=== PATIENT | male | born 1960 | race Caucasian/White ===

== ENCOUNTER 2019-12-13 02:14 | Emergency (ER) | payer OTHER ==
[2019-12-13 03:27] LABS: Absolute Lymphocytes (CBC) 0.8 K/uL (0.7-4.9); Basophils % 0.4 % (0-1.3); Hematocrit 44.7 % (39.6-49.0); Lymphocytes % 10.8 % (15.3-44.8); MPV 8.1 fL (7.6-11.3); RBC Red Blood Cell Count 5.07 M/uL (4.33-5.43)
[2019-12-13 03:33] LABS: ALT/SGPT 31 U/L (12-78); AST/SGOT 26 U/L (15-37); Albumin 4.5 g/dL (3.4-5.0); Alkaline Phosphatase 99 U/L (45-117); BUN Blood Urea Nitrogen 18 mg/dL (7-18); Bicarbonate 30 mmol/L (21-32); Bilirubin Direct 0.2 mg/dL (0-0.2); Bilirubin Total 0.6 mg/dL (0.2-1.0); Glucose Level 106 mg/dL (74-106); Potassium 4.2 mmol/L (3.5-5.1); Protein, Total 8.6 g/dL (6.4-8.2); Sodium Level 136 mmol/L (136-145)
[2019-12-13] MEDS ORDERED: MAGNESIUM CITRATE 300 ML BOT ONE (05:05)
--- NOTE | 2019-12-13 05:27 | ER ---
Nurse's Notes [facility] Name: Bill Sanchez Age: 59 yrs Sex: Male : 1960 Arrival Date: 12/13/2019 Time: 02:20 Bed 17 Private MD: Diagnosis: Constipation, unspecified Presentation: 12/12 02:33 Chief complaint: Patient states: Last bowel movement ws 2 days ago, having difficulty wh defecating tonight. Pt states he feels like its coming out but it wont pass. C/O rectal pain. Coronavirus screen: Client denies travel out of the [place] in the last 14 days. At this time, the client does not indicate any symptoms associated with coronavirus-19. Ebola Screen: Patient negative for fever greater than or equal to 101.5 degrees Fahrenheit, and additional compatible Ebola Virus Disease symptoms Patient denies exposure to infectious person. Initial Sepsis Screen: Does the patient meet any 2 criteria? HR > 90 bpm. Does the patient have a suspected source of infection? No. Patient's initial sepsis screen is negative. Risk Assessment: Do you want to hurt yourself or someone else? Patient reports no desire to harm self or others. Onset of symptoms was December 13, 2019. 02:33 Method Of Arrival: Ambulatory 02:33 Acuity: SID 4 Historical: - Allergies: 02:37 multivitamins; - Home Meds: 02:37 lisinopril-hydrochlorothiazide oral oral [Active]; - PMHx: 02:37 Diabetes - NIDDM; Hypertension; High Cholesterol; Sleep Apnea; - PSHx: 02:37 Hernia repair; - Immunization history:: Adult Immunizations up to date. - Social history:: Smoking status: Patient/guardian denies using. Screenin:39 Abuse screen: Denies threats or abuse. Denies injuries from another. Nutritional screening: No deficits noted. Tuberculosis screening: No symptoms or risk factors identified. Fall Risk None identified. Assessment: 02:37 General: Appears in no apparent distress. Behavior is calm, cooperative, appropriate for age. Pain: Complains of pain in Rectal pain Pain currently is 4 out of 10 on a pain scale. Quality of pain is described as pressure. Neuro: Level of Consciousness is awake, alert, obeys commands, Oriented to person, place, time, situation, Appropriate for age. Cardiovascular: Heart tones S1 S2. Respiratory: Airway is patent Respiratory effort is even, unlabored, Respiratory pattern is regular, symmetrical, Breath sounds are clear bilaterally. GI: Abdomen is flat, non-distended, Bowel sounds present X 4 quads. Abd is soft and non tender X 4 quads. : No signs and/or symptoms were reported regarding the genitourinary system. EENT: No signs and/or symptoms were reported regarding the EENT system. Derm: Skin is intact, is healthy with good turgor, Skin is pink, warm \T\ dry. normal. Musculoskeletal: Circulation, motion, and sensation intact. 04:00 Reassessment: Patient appears in no apparent distress at this time. No changes from previously documented assessment. Patient and/or family updated on plan of care and expected duration. Pain level reassessed. Patient is alert, oriented x 3, equal unlabored respirations, skin warm/dry/pink. 05:36 Reassessment: Patient appears in no apparent distress at this time. Patient and/or family updated on plan of care and expected duration. Pain level reassessed. Patient is alert, oriented x 3, equal unlabored respirations, skin warm/dry/pink. Patient states feeling better. Patient states symptoms have improved. Vital Signs: 02:33 BP 112 / 81; Pulse 96; Resp 18; Temp 98.3; Pulse Ox 100% ; Weight 101.51 kg; Height 5 wh ft. 10 in. (177.80 cm); Pain 4/10; 03:45 BP 122 / 86; Pulse 92; Resp 18; Pulse Ox 99% on R/A; 05:00 BP 117 / 86; Pulse 95; Resp 18; Pulse Ox 99% on R/A; 02:33 Body Mass Index 32.11 (101.51 kg, 177.80 cm) ED Course: 02:20 Patient arrived in ED. es 02:25 Thom Felton MD is Attending Physician. 7 02:33 Anjelica Banks is Primary Nurse. 02:36 Triage completed. 02:39 Arm band placed on right wrist. 02:39 Patient has correct armband on for positive identification. Bed in low position. Call light in reach. Side rails up X 1. Pulse ox on. NIBP on. 02:45 Inserted saline lock: 20 gauge in right antecubital area, using aseptic technique. Blood collected. 04:33 Abdomen Acute Series XRAY In Process Unspecified. EDDE 05:25 Mack Polk MD is Referral Physician. [facility] 05:38 No provider procedures requiring assistance completed. IV discontinued, intact, wh bleeding controlled, No redness/swelling at site. Administered Medications: 04:55 Drug: Magnesium Citrate Liquid 300 ml Route: PO; 05:39 Follow up: Response: No adverse reaction Outcome: 05:26 Discharge ordered by . [facility] 05:38 Discharged to home ambulatory. 05:38 Condition: stable 05:38 Discharge instructions given to patient, Instructed on discharge instructions, follow up and referral plans. medication usage, POC Demonstrated understanding of instructions, follow-up care, medications, POC Prescriptions given X 3. 05:39 Patient left the ED. Signatures: Dispatcher [employer] EDAlexandrea Cullen Winsy Thom Felton MD MD [facility]
--- NOTE | 2019-12-13 05:27 | EDPHYS ---
Physician Documentation [facility] Name: Bill Sanchez Age: 59 yrs Sex: Male : 1960 Arrival Date: 12/13/2019 Time: 02:20 Bed 17 Private MD: ED Physician Thom Felton HPI: 12/12 02:54 This 59 yrs old Male presents to ER via Ambulatory with complaints of mh7 Constipation. 02:55 The patient presents with Constipation. Onset: The symptoms/episode began/occurred mh7 today. The symptoms do not radiate. Associated signs and symptoms: Pertinent negatives: nausea, vomiting, and diarrhea, nausea and vomiting, anorexia, blood in stools, chest pain, diarrhea, dysuria, fever, headache, hematuria, nausea, palpitations, shortness of breath, testicular pain, vomiting, vomiting blood. 02:56 Constipation. Onset: The symptoms/episode began/occurred today. Severity of symptoms: mh7 At their worst the symptoms were moderate today, in the emergency department the symptoms are unchanged. Patient states that his last normal bowel movement was 2 days ago. States that he felt constipated at work today. He attempted to have bowel movement but only small amount of hard stool expelled. he still feels that there is stool in his rectum. He denies any abdominal pain. chest pain, fever, nausea, vomiting, diarrhea, or dysuria.. Historical: - Allergies: 02:37 multivitamins; - Home Meds: 02:37 lisinopril-hydrochlorothiazide oral oral [Active]; - PMHx: 02:37 Diabetes - NIDDM; Hypertension; High Cholesterol; Sleep Apnea; [facility] PSHx: 02:37 Hernia repair; - Immunization history:: Adult Immunizations up to date. - Social history:: Smoking status: Patient/guardian denies using. ROS: 02:56 Constitutional: Negative for fever, chills, and weight loss, Eyes: Negative for injury, mh7 pain, redness, and discharge, ENT: Negative for injury, pain, and discharge, Neck: Negative for injury, pain, and swelling, Cardiovascular: Negative for chest pain, palpitations, and edema, Respiratory: Negative for shortness of breath, cough, wheezing, and pleuritic chest pain, Back: Negative for injury and pain, : Negative for injury, bleeding, discharge, and swelling, MS/Extremity: Negative for injury and deformity, Skin: Negative for injury, rash, and discoloration, Neuro: Negative for headache, weakness, numbness, tingling, and seizure, Psych: Negative for depression, anxiety, suicide ideation, homicidal ideation, and hallucinations, Allergy/Immunology: Negative for hives, rash, and allergies, Endocrine: Negative for neck swelling, polydipsia, polyuria, polyphagia, and marked weight changes, Hematologic/Lymphatic: Negative for swollen nodes, abnormal bleeding, and unusual bruising. Exam: 02:56 Constitutional: This is a well developed, well nourished patient who is awake, alert, mh7 and in no acute distress. Head/Face: Normocephalic, atraumatic. Neck: Trachea midline, no thyromegaly or masses palpated, and no cervical lymphadenopathy. Supple, full range of motion without nuchal rigidity, or vertebral point tenderness. No Meningismus. Chest/axilla: Normal chest wall appearance and motion. Nontender with no deformity. No lesions are appreciated. Cardiovascular: Regular rate and rhythm with a normal S1 and S2. No gallops, murmurs, or rubs. Normal PMI, no JVD. No pulse deficits. Respiratory: Lungs have equal breath sounds bilaterally, clear to auscultation and percussion. No rales, rhonchi or wheezes noted. No increased work of breathing, no retractions or nasal flaring. 02:56 Back: No spinal tenderness. No costovertebral tenderness. Full range of motion. Skin: Warm, dry with normal turgor. Normal color with no rashes, no lesions, and no evidence of cellulitis. MS/ Extremity: Pulses equal, no cyanosis. Neurovascular intact. Full, normal range of motion. Neuro: Awake and alert, GCS 15, oriented to person, place, time, and situation. Cranial nerves II-XII grossly intact. Motor strength 5/5 in all extremities. Sensory grossly intact. Cerebellar exam normal. Normal gait. Psych: Awake, alert, with orientation to person, place and time. Behavior, mood, and affect are within normal limits. 02:56 Abdomen/GI: Inspection: abdomen appears normal, obese Bowel sounds: normal, in all quadrants, Palpation: abdomen is soft and non-tender, in all quadrants, Indicators: McBurney's point is not tender, Herman's sign is negative, Rovsing's sign is negative, Obturator sign is negative, Psoas sign is negative, Liver: no appreciated palpable abnormalities, Hernia: not appreciated. 05:21 Abdomen/GI: Rectal exam: rectal tone normal, Stool: brown, guaiac negative, mh7 hemorrhoid(s), are not appreciated, mass, is not appreciated, swelling, is not appreciated, tenderness, is not appreciated, fecal impaction, that is mild. Vital Signs: 02:33 BP 112 / 81; Pulse 96; Resp 18; Temp 98.3; Pulse Ox 100% ; Weight 101.51 kg; Height 5 wh ft. 10 in. (177.80 cm); Pain 4/10; 03:45 BP 122 / 86; Pulse 92; Resp 18; Pulse Ox 99% on R/A; wh 05:00 BP 117 / 86; Pulse 95; Resp 18; Pulse Ox 99% on R/A; wh 02:33 Body Mass Index 32.11 (101.51 kg, 177.80 cm) wh MDM: 02:50 Patient medically screened. 7 05:21 Differential Diagnosis Constipation, Bowel Obstruction, Irritable Bowel. Data reviewed: [facility] vital signs, nurses notes, lab test result(s), CBC, electrolytes, radiologic studies, plain films. Data interpreted: Pulse oximetry: on room air is 100 %. Interpretation: normal. Counseling: I had a detailed discussion with the patient and/or guardian regarding: the historical points, exam findings, and any diagnostic results supporting the discharge/admit diagnosis, lab results, radiology results, the need for outpatient follow up, to return to the emergency department if symptoms worsen or persist or if there are any questions or concerns that arise at home. Response to treatment: the patient's symptoms have resolved after treatment, the patient's blood pressure is in an acceptable range, mental status has returned to baseline, the patient no longer shows bradycardia, the patient is not short of breath, the patient is not tachycardic, the patient's pain is gone, the patient's temperature has normalized, the patient is now symptom free, patient is well hydrated. 06:41 ED course: Feels better, well appearing, NAD, VSS. No abdominal pain/tenderness, mh7 nausea, vomiting. Tolerating oral intake without difficulty. Patient had bowel movement with large amount of fecal matter expelled. He requested to be discharged from the ED afterwards.. 12/12 02:51 Order name: CBC with Diff; Complete Time: 03:52 [facility] 12/12 02:51 Order name: Basic Metabolic Panel; Complete Time: 03:52 [facility] 12/12 02:51 Order name: LFT's; Complete Time: 03:52 [facility] 12/12 03:55 Order name: Abdomen Acute Series XRAY [facility] 12/12 02:51 Order name: Saline Lock; Complete Time: 03:01 [facility] Administered Medications: 04:55 Drug: Magnesium Citrate Liquid 300 ml Route: PO; 05:39 Follow up: Response: No adverse reaction Disposition: 06:41 Co-signature as Attending Physician, Thom Felton MD. [facility] Disposition: 12/13/19 05:26 Discharged to Home. Impression: Constipation, unspecified. - Condition is Stable. - Discharge Instructions: High-Fiber Diet, Constipation, Adult, Utco-ob-Hzzp, Fiber Content in Foods. - Prescriptions for Colace 100 mg Oral Capsule - take 1 tablet by ORAL route every 12 hours; 14 tablet. Lactulose 10 gram/15 mL Oral Solution - take 30 milliliters by ORAL route once daily; 150 milliliter. Dulcolax 10 mg Rectal Suppository - insert 1 suppository by RECTAL route once daily As needed; 5 suppository. - Medication Reconciliation Form, Thank You Letter, Antibiotic Education, Prescription Opioid Use form. - Follow up: Private Physician; When: 1 - 2 days; Reason: Worsening of condition, Recheck today's complaints, Continuance of care, Re-evaluation by your physician. Follow up: Mack Polk MD; When: 5 - 6 days; Reason: Worsening of condition, Recheck today's complaints. - Problem is new. - Symptoms have improved. Signatures: Dispatcher [employer] EDMS Anjelica Banks Thom Felton MD MD [facility] Corrections: (The following items were deleted from the chart) 05:39 05:26 12/13/2019 05:26 Discharged to Home. Impression: Constipation, unspecified. Condition is Stable. Forms are Medication Reconciliation Form, Thank You Letter, Antibiotic Education, Prescription Opioid Use. Follow up: Private Physician; When: 1 - 2 days; Reason: Worsening of condition, Recheck today's complaints, Continuance of care, Re-evaluation by your physician. Follow up: Mack Polk; When: 5 - 6 days; Reason: Worsening of condition, Recheck today's complaints. Problem is new. Symptoms have improved. mh7
--- NOTE | 2019-12-13 06:47 | RAD REPORT ---
EXAM DESCRIPTION: RAD - Abdomen Acute Series - 12/13/2019 4:33 am CLINICAL HISTORY: CONSTIPATION COMPARISON: No comparisons FINDINGS: No focal mass consolidation. No hilar lymphadenopathy evident. Interstitial pattern is pro minent probably baseline fibrosis. No significant failure or volume overload. Heart size and pulmonar y vasculature are normal. No pleural effusion, pneumothorax or other acute cardiopulmonary process se en. Moderately large stool volume is present throughout a nondilated colon. Rectum is distended. Stool is seen below the level of the ischium. This may be stool that is all ready external to the body. Recta l prolapse would be clinically evident. No small bowel dilatation. No free air or pneumatosis. Pelvic floor phleboliths are present. No other suspicious for significant findings. IMPRESSION: No bowel obstruction, free air or surgically emergent finding. As detailed above, moderately large stool volume is present throughout the colon with the rectum dist ended. No acute chest finding.
[2019-12-18 09:08] VITALS: TEMP 98.3
[2019-12-18 09:09] VITALS: O2SAT 99
[2019-12-18 09:10] VITALS: BP 117/86
== END 2019-12-13 05:39 | disposition home or self-care (01) ==
LOC: ER 02:14
DX: K59.00 Constipation, unspecified (principal); I10 Essential (primary) hypertension; E11.9 Type 2 diabetes mellitus without complications; Z91.048 Other nonmedicinal substance allergy status
CPT/HCPCS: 36415; 74022; 80048; 80076; 85025; 99284

== ENCOUNTER 2021-08-04 05:09 | Observation (INO) | payer MEDICARE, OTHER ==
--- OUTSIDE RECORDS SUMMARY | 2021-08-04 05:12 | XMS REPORT | Continuity of Care Document ---
:1960 Author Organization [facility] t Address [facility] [place] [address] Care Team Providers Name Role Phone PCP, DOES NOT HAVE A Primary Care Physician Unavailable Ramya RETANA Attending Clinician Unavailable Ramya RETANA Attending Clinician Unavailable 1, Sleep Lab Bed Attending Clinician Unavailable Ramya Retana MD Attending Clinician Only, Test Attending Clinician Unavailable Kiki ROCHA Attending Clinician KIKI Attending Clinician Unavailable Doctor Unassigned, Name Attending Clinician Unavailable Payers Payer Name Policy Type Policy Number Effective Date Expiration Date S [facility] [id number] 2021 00:00:00 [facility] - [id number] 2020 OUT OF STATE 00:00:00 Problems Condition Condition Condition Status Onset Resolution Last Treating Co mments Source Name Details Category Date Date Treatment Clinician Date No known No known Disease Unive rs active active ity of problems problems [facility] Allergies, Adverse Reactions, Alerts Allergy Allergy Status Severity Reaction(s) Onset Inactive Treating Comm ents Source Name Type Date Date Clinician NO KNOWN Drug Active Univers ALLERGIE Class ity of S [facility] Social History Social Habit Start Date Stop Date Quantity Comments Source Exposure to Not sure [facility] SARS-CoV-2 (event) Medica l Branch Sex Assigned At [birth year] [facility] 00:00:00 00:00:00 [facility] Smoking Status Start Date Stop Date Source Unknown if ever smoked [facility] Medications Ordered Filled Start Stop Current Ordering Indication Dosage Frequency Signature Comments Components Source Medication Medication Date Date Medication? Clinician (SIG) Name Name No known 2020-04 No Univers medications 1-17 ity of 11:39: [address] No known 2020-04 No Univers medications 1-17 ity of 11:39: [address] No known 2020-04 No Univers medications 1-17 ity of 11:39: [address] No known 2020-04 No Univers medications 1-17 ity of 11:39: [address] No known 2020-04 No Univers medications 1-17 ity of 11:39: [address] Vital Signs Vital Name Observation Time Observation Value Comments Source Systolic blood 2021-03-05 17:46:00 136 mm[Hg] Univer sity of pressure [facility] Diastolic blood 2021-03-05 17:46:00 79 mm[Hg[facility] 2021-03-05 17:46:00 81 /min [facility] Body temperature 2021-03-05 17:46:[address] [facility] 2021-03-05 17:46:00 18 /min [facility] Body height 2021-03-05 17:46:00 177.8 cm [facility] Body weight 2021-03-05 17:46:00 114.034 kg [facility] BMI 2021-03-05 17:46:00 36.07 kg/m2 [facility] Oxygen saturation in 2021-03-05 17:46:00 99 /min [facility] blood by [facility] Pulse oximetry Branch Procedures Procedure Date / Time Performing Clinician Source Performed ASSIGNMENT OF BENEFITS 2021-04-14 15:44:25 Doctor Unassigned, No [facility] Name Medical Branch VACCINATIONS - 2021-03-20 06:01:00 Doctor Unassigned, No [facility] CONSENTS, ELIGIBILITY, Name Medical B ranch HISTORY Encounters Start End Encounter Admission Attending Care Care Encounter Source Date/Time Date/Time Type Type Clinicians Facility Department ID 2021-04-30 2021-04-30 Outpatient R CIRILO RETANA [facility] [id number] Univers 09:00:00 09:00:00 CIRILO RETANA [id number] [facility] 2021-04-30 2021-04-30 Outpatient R CIRILO RETANA [facility] [id number] Univers 09:00:00 09:00:00 CIRILO RETANA [facility] 2021-04-14 2021-04-14 Chief Of Police 1, [facility] Sleep Lab Bed [facility] [id number]. [id number] Univers 19:30:00 22:00:00 Visit Rafaelmingo Cirilo AMBROSIO [id number] ity of [place] [id number] [facility] [id number] [facility] [address] Branch 2021-04-14 2021-04-14 Outpatient R CIRILO RETANA [facility] [id number] Univers 19:30:00 19:30:00 CIRILO RETANA [facility] 2021-04-14 2021-04-14 Laboratory Only, [facility] Test [facility] [id number] Univers 10:00:00 10:15:00 Only Fredo Whittington [id number] ity of [place] [id number] [facility] [id number] [facility] [address] Branch 2021-04-14 2021-04-14 Outpatient R [facility] [id number] Univers 10:00:00 10:00:00 [id number] ity [facility] 2021-04-14 2021-04-14 Outpatient R KIKI [facility] [id number] Univers 10:00:00 10:00:00 FREDO blackwood [facility] 2021-04-14 2021-04-14 Orders Doctor MCKOY [id number] Univers 00:00:00 00:00:00 Only Unassigned, BRANDT [id number] ity of [place] [facility] [id number] [facility] [id number] [facility] [address] Branch 2021-03-20 2021-03-20 Orders Doctor MCKOY [id number] Univers 00:00:00 00:00:00 Only Unassigned, BRANDT [id number] ity of [place] [facility] [id number] Jaime as [id number] [place] [address] Branch 2021-03-05 2021-03-05 Outpatient R CIRILO RETANA [facility] [id number] Univers 11:40:00 12:56:24 CIRILO RETANA ity of [facility] 2021-03-05 2021-03-05 Office Mazin [facility] [id number] Univers 11:38:13 11:58:13 Visit Cirilo AMBROSIO [id number] ity of [place] [id number] Adrienne gomez PROFESSIO [phone] [facility] BUILDING Results This patient has no known results.
[2021-08-04] MEDS ORDERED: LIDOCAINE VISCOUS 2% SOLN 15 ML UDC ONE (05:48)
[2021-08-04] MEDS ORDERED: MAGNES/ALUMIN/SIMET 30ML UCUP ONE (05:48)
[2021-08-04 05:51] LABS: Absolute Lymphocytes (CBC) 0.7 K/uL (0.7-4.9); Hematocrit 45.8 % (39.6-49.0); Lymphocytes % 5.5 % (15.3-44.8)
[2021-08-04 06:09] LABS: BUN Blood Urea Nitrogen 18 mg/dL (7-18); Bicarbonate 30 mmol/L (21-32); Glucose Level 117 mg/dL (74-106); NT PRO-BNP 68 pg/mL (<125); Potassium 4.1 mmol/L (3.5-5.1); Sodium Level 137 mmol/L (136-145); Troponin High Sensitivity 6.4 pg/mL (<58.9)
--- NOTE | 2021-08-04 07:52 | RAD REPORT ---
EXAM DESCRIPTION: CT - Chest For Pe Angio - 08/04/2021 7:03 am CLINICAL HISTORY: Chest pain COMPARISON: None. TECHNIQUE: Dynamically enhanced axial 3 mm thick images of the chest were obtained during administra tion of <100> mL Isovue 370 IV contrast. Coronal and oblique reconstruction images were generated and reviewed. Exam utilizes a protocol for optimal evaluation of pulmonary arterial tree. Maximum intensity projections 3D imaging was utilized All CT scans are performed using dose optimization technique as appropriate and may include automated exposure control or mA/KV adjustment according to patient size. FINDINGS: Suboptimal opacification of the pulmonary arteries. No gross central pulmonary embolism seen. A thoracic aortic aneurysm is not noted. A pleural effusion is not seen. Minimal pericardial effusion A lung consolidation is not present. Most inferior slice demonstrates possible cholelithiasis. This is incompletely evaluated on this exam IMPRESSION: No gross central pulmonary embolus is seen
--- NOTE | 2021-08-04 08:23 | EDPHYS ---
Physician Documentation [facility] Name: Bill Sanchez Age: 61 yrs Sex: Male : 1960 Arrival Date: 08/04/2021 Time: 05:18 Bed 8 Private MD: ED Physician Bismark Starr HPI: 08/04 05:41 This 61 yrs old Male presents to ER via Ambulatory with complaints of Chest Pain > 30 rn y/o. 05:41 The patient or guardian reports chest pain that is located primarily in the substernal rn area. Onset: last night. The pain does not radiate. Associated signs and symptoms: Pertinent negatives: cough, palpitations, shortness of breath, syncope, vomiting. The chest pain is described as a heaviness. Duration: The patient or guardian reports a single episode, that is still ongoing. Modifying factors: The symptoms are alleviated by nothing. the symptoms are aggravated by nothing. Severity of pain: At its worst the pain was moderate in the emergency department the pain is unchanged. The patient has not experienced similar symptoms in the past. The patient has not recently seen a physician. Pt reports substernal chest pain, began last night, has never had pain like this before. States ate big Easter meal but doesn't normally have acid reflux problems. Denies previous cardiac w/u. No fever. NO cough. No sob. Reports ran out of BP meds last week. No abd pain/vomiting/diarrhea. . Historical: - Allergies: 05:26 No Known Allergies; lp1 - PMHx: 05:26 Diabetes - NIDDM; High Cholesterol; Hypertension; Sleep Apnea; lp1 - PSHx: 05:26 Hernia repair; lp1 - Immunization history:: Adult Immunizations up to date. - Social history:: Smoking status: unknown. - Family history:: not pertinent. - Hospitalizations: : No recent hospitalization is reported. ROS: 05:43 Constitutional: Negative for fever, chills, and weight loss, Eyes: Negative for injury, rn pain, redness, and discharge, ENT: Negative for injury, pain, and discharge, Neck: Negative for injury, pain, and swelling, Cardiovascular: Negative for palpitations, and edema, Respiratory: Negative for shortness of breath, cough, wheezing, and pleuritic chest pain, Abdomen/GI: Negative for abdominal pain, nausea, vomiting, diarrhea, and constipation, Back: Negative for injury and pain, MS/Extremity: Negative for injury and deformity, Skin: Negative for injury, rash, and discoloration, Neuro: Negative for headache, weakness, numbness, tingling, and seizure. Exam: 05:43 Constitutional: This is a well developed, well nourished patient who is awake, alert, rn and in no acute distress. Head/Face: Normocephalic, atraumatic. Eyes: Periorbital areas with no swelling, redness, or edema. Cardiovascular: Tachycardic, regular. No pulse deficits. Respiratory: No increased work of breathing, no retractions or nasal flaring. Abdomen/GI: Soft, non-tender Skin: Warm, dry with normal turgor. Normal color with no rashes, no lesions, and no evidence of cellulitis. MS/ Extremity: Pulses equal, no cyanosis, + mild lower ext peripheral edema Neuro: Awake and alert, GCS 15 05:45 ECG was reviewed by the Attending Physician. rn Vital Signs: 05:24 BP 175 / 101; Pulse 105; Resp 16; Temp 97.4; Pulse Ox 98% on R/A; Weight 124.74 kg; lp1 Height 5 ft. 11 in. (180.34 cm); 05:49 BP 174 / 96; Pulse 107; Resp 20; Pulse Ox 98% on R/A; Pain 5/10; lp1 06:47 BP 167 / 89; Pulse 101; Resp 22; Pulse Ox 99% on R/A; ll3 08:01 BP 156 / 88; Pulse 101; Resp 18; Pulse Ox 98% on 2 lpm NC; Pain 4/10; jh6 10:13 BP 157 / 92; Pulse 107; Pulse Ox 99% on R/A; ap3 05:24 Body Mass Index 38.35 (124.74 kg, 180.34 cm) lp1 MDM: 05:19 Patient medically screened. rn 07:44 Transition of care: Care assumed from Kevyn Moore MD. ms3 08:22 Differential diagnosis: abnormal EKG, acute myocardial infarction, coronary artery ms3 disease pulmonary embolus. HEART Score: History: Slightly Suspicious (0), ECG: Normal (0), Age: > 45 and < 65 years (1), Risk Factors: > or = 3 Risk factors for atherosclerotic disease (2), Troponin: < or = 1 x Normal Limit (0), Total Score = 4. Data reviewed: vital signs, nurses notes, lab test result(s), EKG, radiologic studies. 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 Test interpretation: by ED physician or midlevel provider: ECG, plain radiologic studies. Counseling: I had a detailed discussion with the patient and/or guardian regarding: the historical points, exam findings, and any diagnostic results supporting the discharge/admit diagnosis, lab results, radiology results, the need for further work-up and treatment in the hospital. 08/04 05:25 Order name: Basic Metabolic Panel; Complete Time: 06:29 rn 08/04 05:25 Order name: CBC with Diff; Complete Time: 06:29 rn 08/04 05:25 Order name: NT PRO-BNP; Complete Time: 06:29 rn 08/04 05:25 Order name: Troponin HS; Complete Time: 06:29 rn 08/04 05:43 Order name: SARS-COV-2 RT PCR (Document "Date of Onset" if Symptomatic); Complete Time: rn 06:39 08/04 05:44 Order name: D-Dimer; Complete Time: 06:29 rn 08/04 05:54 Order name: Glucose, Ancillary Testing; Complete Time: 06:29 EDOH 08/04 10:34 Order name: T4 Free EDOH 08/04 10:34 Order name: Thyroid Stimulating Hormone EDOH 08/04 10:34 Order name: Urinalysis EDOH 08/04 10:34 Order name: Basic Metabolic Panel EDOH 08/04 10:34 Order name: Basic Metabolic Panel EDOH 08/04 10:34 Order name: CBC with Automated Diff EDMS 08/04 10:34 Order name: CBC with Automated Diff EDMS 08/04 05:20 Order name: XRAY Chest (1 view) rn 08/04 05:20 Order name: EKG; Complete Time: 05:21 rn 08/04 05:20 Order name: EKG - Nurse/Tech; Complete Time: 05:42 rn 08/04 05:20 Order name: Cardiac monitoring; Complete Time: 05:42 rn 08/04 05:25 Order name: IV Saline Lock; Complete Time: 05:45 rn 08/04 05:25 Order name: Labs collected and sent; Complete Time: 05:45 rn 08/04 05:25 Order name: O2 Per Protocol; Complete Time: 05:42 rn 08/04 05:25 Order name: O2 Sat Monitoring; Complete Time: 05:42 rn 08/04 06:30 Order name: CT Chest For PE Angio; Complete Time: 08:19 rn EC:45 Rate is 108 beats/min. Rhythm is regular. QRS Caroleen is Normal. IL interval is normal. rn QRS interval is normal. QT interval is normal. No Q waves. T waves are Normal. No ST changes noted. Clinical impression: Sinus tachycardia. Interpreted by me. Reviewed by me. Administered Medications: 05:49 Drug: GI Cocktail without - (Maalox Suspension 30 ml, Lidocaine Liquid 2 % 15 lp1 ml) Route: PO; 10:14 Follow up: Response: No adverse reaction ap3 Disposition Summary: 08/04/21 08:22 Hospitalization Ordered Hospitalization Status: Observation ms3 Provider: Medhat Moore ms3 Condition: Stable ms3 Problem: new ms3 Symptoms: are unchanged ms3 Bed/Room Type: Standard ms3 Location: Telemetry/MedSurg (observation)(08/04/21 12:53) bd Room Assignment: 408(08/04/21 12:53) Diagnosis - Chest pain, unspecified ms3 - sinus tachycardia ms3 - Leukocytosis ms3 Discharge Instructions: - Discharge Summary Sheet ph Forms: - Medication Reconciliation Form ms3 - SBAR form ms3 Signatures: Dispatcher [employer] EDMS Karen Dawn bd Kevyn Moore MD MD rn Pena, Laura, RN RN lp1 Bismark Starr DO DO ms3 Vera Trujillo RN ap3 Corrections: (The following items were deleted from the chart) 05:27 05:26 Allergies: multivitamins [Inactive]; lp1 lp1 05:45 05:43 Constitutional: This is a well developed, well nourished patient who is awake, rn alert, and in no acute distress. Head/Face: Normocephalic, atraumatic. Eyes: Periorbital areas with no swelling, redness, or edema. Cardiovascular: Tachycardic, regular. No pulse deficits. Respiratory: No increased work of breathing, no retractions or nasal flaring. Abdomen/GI: Soft, non-tender Skin: Warm, dry with normal turgor. Normal color with no rashes, no lesions, and no evidence of cellulitis. MS/ Extremity: Pulses equal, no cyanosis. Neurovascular intact. Full, normal range of motion. Equal circumference. Neuro: Awake and alert, GCS 15, oriented to person, place, time, and situation. Cranial nerves II-XII grossly intact. Motor strength 5/5 in all extremities. Sensory grossly intact. Cerebellar exam normal. Normal gait. rn 08:22 Telemetry/MedSurg (observation) ms3 bd 11 08:22 ms3 bd : 11:53 [facility] ER HOLD bd bd 11:53 ERHOLD- bd bd
--- NOTE | 2021-08-04 08:23 | ER ---
Nurse's Notes [facility] Name: Bill Sanchez Age: 61 yrs Sex: Male : 1960 Arrival Date: 08/04/2021 Time: 05:18 Bed 8 Private MD: Diagnosis: Chest pain, unspecified;sinus tachycardia;Leukocytosis Presentation: 08/04 05:24 Chief complaint: Patient states: I have had chest pain for the last 6-7 hours and I am lp1 out of my BP meds. Coronavirus screen: Client denies travel out of the [place] in the last 14 days. Ebola Screen: No symptoms or risks identified at this time. Initial Sepsis Screen: Does the patient meet any 2 criteria? Does the patient have a suspected source of infection? No. Patient's initial sepsis screen is negative. Risk Assessment: Do you want to hurt yourself or someone else? Patient reports no desire to harm self or others. Onset of symptoms was August 04, 2021. 05:24 Method Of Arrival: Ambulatory lp1 05:24 Acuity: SID 3 lp1 Historical: - Allergies: 05:26 No Known Allergies; lp1 - PMHx: 05:26 Diabetes - NIDDM; High Cholesterol; Hypertension; Sleep Apnea; lp1 - PSHx: 05:26 Hernia repair; lp1 - Immunization history:: Adult Immunizations up to date. - Social history:: Smoking status: unknown. - Family history:: not pertinent. - Hospitalizations: : No recent hospitalization is reported. Screenin:43 Abuse screen: Denies threats or abuse. Denies injuries from another. Nutritional lp1 screening: No deficits noted. Tuberculosis screening: No symptoms or risk factors identified. Fall Risk None identified. Assessment: 05:50 General: Appears in no apparent distress. Behavior is calm, cooperative. Pain: lp1 Complains of pain in mid-sternal area Pain does not radiate. Pain currently is 5 out of 10 on a pain scale. Quality of pain is described as burning, Pain began at 2300. Neuro: Level of Consciousness is awake, alert, obeys commands, Oriented to person, place, time, situation. Cardiovascular: Patient's skin is warm and dry. Respiratory: Respiratory effort is even, Respiratory pattern is regular, Denies shortness of breath. GI: Abdomen is obese. : No signs and/or symptoms were reported regarding the genitourinary system. EENT: No signs and/or symptoms were reported regarding the EENT system. Derm: Skin is pink, warm \T\ dry. Varicose veins to left lower leg. Musculoskeletal: Circulation, motion, and sensation intact. 08:00 General: Appears in no apparent distress. Behavior is calm, cooperative. Pain: jh6 Complains of pain in xiphoid area and mid-sternal area Pain currently is 4 out of 10 on a pain scale. Quality of pain is described as pressure, Pain began suddenly. Cardiovascular: No deficits noted. Reports chest pain, Capillary refill < 3 seconds Patient's skin is warm and dry. Rhythm is sinus rhythm. Respiratory: No deficits noted. Respiratory effort is even, unlabored, Respiratory pattern is regular, symmetrical. 10:13 Reassessment: Patient and/or family updated on plan of care and expected duration. Pain ap3 level reassessed. Patient is alert, oriented x 3, equal unlabored respirations, skin warm/dry/pink. 13:29 Reassessment: report called to rosanna. ap3 13:29 Reassessment:. ap3 Vital Signs: 05:24 BP 175 / 101; Pulse 105; Resp 16; Temp 97.4; Pulse Ox 98% on R/A; Weight 124.74 kg; lp1 Height 5 ft. 11 in. (180.34 cm); 05:49 BP 174 / 96; Pulse 107; Resp 20; Pulse Ox 98% on R/A; Pain 5/10; lp1 06:47 BP 167 / 89; Pulse 101; Resp 22; Pulse Ox 99% on R/A; ll3 08:01 BP 156 / 88; Pulse 101; Resp 18; Pulse Ox 98% on 2 lpm NC; Pain 4/10; jh6 10:13 BP 157 / 92; Pulse 107; Pulse Ox 99% on R/A; ap3 05:24 Body Mass Index 38.35 (124.74 kg, 180.34 cm) lp1 ED Course: 05:18 Patient arrived in ED. bp1 05:19 Kevyn Moore MD is Attending Physician. rn 05:25 Triage completed. lp1 05:27 Arm band placed on left wrist. lp1 05:42 Patient has correct armband on for positive identification. Bed in low position. Placed lp1 in gown. Call light in reach. monitor technician on. Pulse ox on. NIBP on. 05:43 Patient maintains SpO2 saturation greater than 95% on room air. lp1 05:45 Inserted saline lock: 20 gauge in right antecubital area, using aseptic technique. ds4 Blood collected. 05:50 XRAY Chest (1 view) In Process Unspecified. EDMS 07:05 CT Chest For PE Angio In Process Unspecified. EDMS 07:41 Attending Physician role handed off by Kevyn Moore MD ms3 07:41 Bismark Starr DO is Attending Physician. ms3 08:00 Meli West, RN is Primary Nurse. jh6 08:21 Medhat Moore MD is Hospitalizing Provider. ms3 14:04 No provider procedures requiring assistance completed. Patient admitted, IV remains in ap3 place. Administered Medications: 05:49 Drug: GI Cocktail without - (Maalox Suspension 30 ml, Lidocaine Liquid 2 % 15 lp1 ml) Route: PO; 10:14 Follow up: Response: No adverse reaction ap3 Outcome: 08:22 Decision to Hospitalize by Provider. ms3 14:04 Admitted to Med/surg ap3 14:04 Condition: good 14:04 Instructed on the need for admit. 14:35 Patient left the ED. ap3 Signatures: Dispatcher [employer] EDMS Kevyn Moore MD MD rn Pena, Laura, RN RN lp1 Manuel Bee ds4 Vera Trujillo RN RN ap3 Bismark Starr DO DO ms3 Eden Irene Lynsea, RN RN 3 Meli West, RN RN 6 Corrections: (The following items were deleted from the chart) 05:27 05:26 Allergies: multivitamins [Inactive]; lp1 lp1
[2021-08-04] MEDS ORDERED: ONDANSETRON 4 MG/2 ML VIAL IV PRN (10:30)
[2021-08-04] MEDS ORDERED: ACETAMINOPHEN 500 MG TAB PO PRN (10:30)
--- NOTE | 2021-08-04 11:01 | RAD REPORT ---
EXAM DESCRIPTION: RAD - Chest Single View - 08/04/2021 5:48 am CLINICAL HISTORY: Chest pain COMPARISON: 2019 FINDINGS: Lungs appear clear. Heart is normal size. Upper lobe vessels are prominent which may indicate pulmonary venous hypertensi on
[2021-08-04 11:04] VITALS: BMI 38.3
[2021-08-04 11:08] LABS: Thyroid Stimulating Hormone 0.871 uIU/mL (0.360-3.740)
[2021-08-04 12:16] LABS: Urine Appearance CLEAR (Clear); Urine Bilirubin NEGATIVE (Negative); Urine Blood NEGATIVE (Negative); Urine Color YELLOW (Yellow); Urine Glucose NEGATIVE (Negative); Urine Protein NEGATIVE (Negative); Urine Specific Gravity >=1.030 (1.005-1.030); Urine Urobilinogen 0.2 mg/dL (0.2-1.0); Urine pH 7.5 (5.0-7.0)
[2021-08-04 12:20] LABS: Urine Microscopic Reflex NO UMIC
[2021-08-04] MEDS ORDERED: ACETAMINOPHEN 500 MG TAB ONE (12:22)
--- NOTE | 2021-08-04 13:23 | P.HP ---
Certification for Inpatient Patient History Date of Service: 08/04/21 Reason for admission: Chest pain History of Present Illness: Patient is a 61-year-old male with a past medical history significant for DM 2, hypertension, HLD, sleep apnea, obesity who presents with complaint of chest pain located in the substernal chest area. Patient reported that chest pain started yesterday night. Patient rated pain as 6/10 in severity and described pain as sharp\pressure in quality. Patient indicated that chest pain is aggravated with deep breathing and relieved by nothing. Patient reported associated signs and symptoms of headache. Patient denies any other signs and symptoms. Patient decided to present to the hospital due to worsening symptoms. Of note, patient reported that he ran out of his blood pressure medications 4 to 5 weeks ago. Home medications list reviewed: Yes - Past Medical/Surgical History Has patient received pneumonia vaccine in the past: No Diabetic: No -: hypertension -: DM 2 -: HLD -: Sleep apnea -: hernia repair - Family History Family History: Reviewed- Non-Contributory - Social History Smoking Status: Never smoker Alcohol use: No CD- Drugs: No Caffeine use: No Place of Residence: Home <Bartolo Colin - Last Filed: 08/04/21 16:31> Date of Service: 08/04/21 <Medhat Moore - Last Filed: 08/04/21 18:22> Allergies No Known Allergies Allergy (Unverified 08/04/21 10:41) Home Medications: Lisinopril/Hydrochlorothiazide [Lisinopril-Hctz 20-12.5 mg Tab] 1 each PO DAILY 08/04/21 Review of Systems General: Unremarkable Eyes: Unremarkable ENT: Unremarkable Respiratory: Unremarkable Cardiovascular: Chest Pain Gastrointestinal: Unremarkable Genitourinary: Unremarkable Musculoskeletal: Unremarkable Integumentary: Unremarkable Neurological: Other (Headache) Lymphatics: Unremarkable <Johnniejuan danielmelissaJimmyольга [employer] - Last Filed: 08/04/21 16:31> Physical Examination - Vital Signs Blood Pressure: 157/92 Pulse: 101 Pulse Ox (%): 100 - Physical Exam General: Alert, In no apparent distress, Oriented x3 HEENT: Normocephalic, PERRLA Neck: Supple, 2+ carotid pulse no bruit, JVD not distended Respiratory: Clear to auscultation bilaterally, Normal air movement Cardiovascular: No edema, Regular rate/rhythm, Normal S1 S2 Capillary refill: <2 Seconds Gastrointestinal: Normal bowel sounds, Soft and benign, No tenderness Musculoskeletal: No swelling, No erythema Integumentary: No rashes, No breakdown, No significant lesion, No erythema Neurological: Normal gait, Normal strength at 5/5 x4 extr, Normal tone, Sensation intact, Normal reflexes 2+ Lymphatics: No axilla or inguinal lymphadenopathy - Studies Laboratory Data (last 24 hrs) 08/04/21 05:42: WBC 12.4 H, Hgb 15.5, Hct 45.8, Plt Count 204 08/04/21 05:42: Sodium 137, Potassium 4.1, BUN 18, Creatinine 0.75, Glucose 117 H <Bartolo Colin - Last Filed: 08/04/21 16:31> - Studies Laboratory Data (last 24 hrs) 08/04/21 05:42: WBC 12.4 H, Hgb 15.5, Hct 45.8, Plt Count 08/04/21 05:42: Sodium 137, Potassium 4.1, BUN 18, Creatinine 0.75, Glucose 117 H <Medhat Moore - Last Filed: 08/04/21 18:22> Assessment and Plan - Plan --Chest pain. To rule out ACS. Will ternd serial trend troponins. Cardiology consulted. Echocardiogram pending. Telemetry to monitor for any significant arrhythmia. Will await further recommendation from nut grinder. --DM2. BS monitoring with sliding scale insulin. --Hypertension. Poorly controlled. Continue home medications and labetalol as needed. --Hyperlipidemia. Continue statin. --Class II obesity. Likely secondary to excess calories intake. Patient counseled on weight reduction, diet and exercise therapy. -- Sleep apnea. Continue supportive care. --Elevated D-dimer. CT angiogram negative for PE. Continue supportive care. --Leukocytosis. Likely reactive. Will reassess levels in a.m. --DVT prophylaxis with Lovenox subQ Discharge Plan: Home Plan to discharge in: 48 Hours - Advance Directives Does patient have a Living Will: No Does patient have a Durable POA for Healthcare: No - Code Status/Comfort Care Code Status Assessed: Yes Code Status: Full Code Physician Review: Patient Assessed, Agree with Above Assessment and Plan Critical Care: No <Batrolo Colin - Last Filed: 08/04/21 16:31> - Plan Plan of care reviewed as noted above. chest pain, r/o ACS. trend trop. echo ordered restart home anti-hypertensives. stress test in AM Time Spent Managing Pts Care (In Minutes): 75 <Medhat Moore - Last Filed: 08/04/21 18:22>
[2021-08-04] MEDS ORDERED: HOME MED 1 EA UNK (Lisinopril/Hydrochlorothiazide [Lisinopril-Hctz 20-12.5 Mg Tab] Tablet) PO SCH (16:00)
[2021-08-04] MEDS: hydroCHLOROthiazide 12.5 MG CAP PO SCH (16:27)
[2021-08-04] MEDS: lisinopriL 20 MG TAB PO SCH (16:27)
[2021-08-04] MEDS ORDERED: GLUCAGON 1 MG/VIAL IM PRN (16:30)
[2021-08-04] MEDS: INSULIN -REGULAR HUMAN 50 UNIT/0.5 ML ML SQ SCH ×2 (16:30→20:04)
[2021-08-04] MEDS ORDERED: D10W 250 ML BAG IV PRN (16:45)
[2021-08-04] MEDS ORDERED: LABETALOL 20 MG/4ML SYRINGE IV PRN (16:48)
--- NOTE | 2021-08-04 20:37 | CON ---
Date of Consultation: 08/04/2021 Reason For Consultation: Ventricular tachycardia episodes and syncope. History Of Present Illness: This is a DICTATION ENDS HERE SR/MAHCO Voice ID: [id number] Report ID: [id number]
--- NOTE | 2021-08-04 20:43 | CON ---
Date of Consultation: 08/04/2021 Reason For Consultation: Chest pain. History Of Present Illness: This is a 61-year-old male with history of diabetes, diet controlled; hy pertension; presented with chest pain. He had a big Easter dinner yesterday in the evening at home, started having some heartburn, indigestion, and some chest discomfort that has been there since yeste rday. It is slightly better now. He said when he ate a sandwich, felt better today. Denies having any nausea, vomiting, or diaphoresis. No other complaints. Appears comfortable. Past Medical History: As outlined above in the HPI. Hypertension, diet-controlled diabetes. Medications: Refer reconciliation sheet for detailed list. Allergies: NO KNOWN DRUG ALLERGIES. Family History: No premature coronary artery disease or cancer. Social History: Does not smoke or drink. Does not use any drugs. Review of Systems: All systems reviewed and they were negative except as mentioned in HPI. Physical Examination: Vital Signs: Reviewed. Head and Neck: Pupils are equal, reactive to light. Intact eye movements. No JVD. No cervical lym phadenopathy. Neck is supple. Thyroid is not enlarged. Lungs: Clear to auscultation bilaterally. No rhonchi, wheezing, or crackles. No accessory muscle u se. Heart: Regular rate and rhythm. No extra sounds. Abdomen: Soft, nontender. Bowel sounds positive. No organomegaly. No masses or hernia. No rigidi ty or rebound. Extremities: No edema, clubbing, or cyanosis. Intact pulses. Skin: No rash. Neurologic: Alert, awake, oriented x3. No acute focal deficits appreciated. Lymph Nodes: No cervical or axillary lymphadenopathy. Investigations: Troponin, highly sensitive is negative at 6.4. Assessment And Recommendations: Chest pain. Troponins negative. No acute changes on EKG. Pain hap pened yesterday around 7 p.m. and still there, which makes this atypical pain. The patient follows a t the [facility]. We will plan to do exercise nuclear stress test on him tomorrow and echocardiogra m and trend troponin further. Start the patient on aspirin 81 mg daily and if troponin jumps, then w e will anticoagulate; otherwise, we will monitor and plan for stress test and echo tomorrow morning a s above. /MACHO Voice ID: [id number] Report ID: [id number]
[2021-08-04] MEDS ORDERED: BISACODYL E.C. 5 MG TAB PO ONE (20:59)
[2021-08-04] MEDS ORDERED: POLYETHYL GLY 3350 17 GM/DOSE PO PRN (20:59)
[2021-08-04] MEDS ORDERED: ATORVASTATIN 40 MG TAB PO SCH (21:00)
[2021-08-04 21:33] VITALS: O2SAT 98
[2021-08-05 02:29] LABS: Absolute Lymphocytes (CBC) 0.6 K/uL (0.7-4.9); Hematocrit 45.9 % (39.6-49.0); MPV 8.3 fL (7.6-11.3); RBC Red Blood Cell Count 5.17 M/uL (4.33-5.43)
[2021-08-05 02:34] LABS: BUN Blood Urea Nitrogen 16 mg/dL (7-18); Bicarbonate 30 mmol/L (21-32); Glucose Level 148 mg/dL (74-106); Potassium 3.7 mmol/L (3.5-5.1); Sodium Level 135 mmol/L (136-145)
[2021-08-05] MEDS ORDERED: MORPHINE 2 MG/ML SYR IV PRN (02:50)
[2021-08-05 03:44] LABS: Blood Morphology Comment NOT SEEN (NOT SEEN); Platelet Estimate ADEQ
[2021-08-05] MEDS: INSULIN -REGULAR HUMAN 50 UNIT/0.5 ML ML SQ SCH ×2 (07:30→11:30)
[2021-08-05] MEDS ORDERED: REGADENOSON 0.4 MG/5 ML SYR IV ONE (07:56)
--- NOTE | 2021-08-05 08:58 | EKG ---
Test Date: 2021-08-05 Test Time: 05:54:12 Manager Rfid: 33 MEASUREMENT RESULTS: Intervals: Rate: 86 WY: 176 QRSD: 96 QT: 346 QTc: 414 Gamaliel: P: 64 WY: 176 QRS: 29 T: 50 INTERPRETIVE STATEMENTS: Normal sinus rhythm Acute pericarditis Abnormal ECG Compared to ECG 08/04/2021 05:28:11 Sinus tachycardia no longer present Atrial abnormality no longer present Electronically Signed On 08-05-21 08:58:09 CDT by Sree Hanna
[2021-08-05] MEDS ORDERED: ENOXAPARIN 40 MG/0.4 ML SQ SCH (09:00)
[2021-08-05] MEDS ORDERED: MAGNESIUM CITRATE 300 ML BOT PO SCH (09:00)
[2021-08-05] MEDS ORDERED: POTASSIUM CL SA 10 MEQ TAB PO ONE (09:00)
[2021-08-05] MEDS ORDERED: ASPIRIN 81 MG CHEWABLE TABLET PO SCH (09:00)
[2021-08-05] MEDS: hydroCHLOROthiazide 12.5 MG CAP PO SCH (09:39)
[2021-08-05] MEDS: lisinopriL 20 MG TAB PO SCH (09:40)
--- NOTE | 2021-08-05 09:47 | ECHO ---
HEIGHT: 5 ft 11 in WEIGHT: 275 lb 0.074 oz DATE OF STUDY: 08/05/[address]: Bartolo Colin 2-DIMENSIONAL: YES M.MODE: YES DOPPLER: YES COLOR FLOW: YES TDS: YES PORTABLE: DEFINITY: BUBBLE STUDY: DIAGNOSIS: CHEST PAIN CARDIAC HISTORY: CATHERIZATION: SURGERY: PROSTHETIC VALVE: PACEMAKER: MEASUREMENTS (cm) DIASTOLIC (NORMALS) SYSTOLIC (NORMALS) IVSd 1.0 (0.6-1.2) LA Diam 4.3 (1.9-4.0) LVEF 66% LVIDd 4.3 (3.5-5.7) LVIDs 2.7 (2.0-3.5) %FS 36% LVPWd 1.2 (0.6-1.2) Ao Diam 3.1 (2.0-3.7) 2 DIMENSIONAL ASSESSMENT: RIGHT ATRIUM: NORMAL LEFT ATRIUM: NORMAL RIGHT VENTRICLE: NORMAL LEFT VENTRICLE: NORMAL TRICUSPID VALVE: NORMAL MITRAL VALVE: NORMAL PULMONIC VALVE: NORMAL AORTIC VALVE: NORMAL PERICARDIAL EFFUSION: NONE AORTIC ROOT: NORMAL LEFT VENTRICULAR WALL MOTION: NORMAL DOPPLER/COLOR FLOW: MILD TRICUSPID REGURGITATION. COMMENTS: MILD TRICUSPID REGURGITATION. NORMAL RIGHT VENTRICULAR SYSTOLIC PRESSURE. NORMAL LEFT VENTRICULAR SIZE AND FUNCTION. NO WALL MOTION ABNORMALITY. NO EFFUSION. TECHNOLOGIST: REY PEREZ
--- NOTE | 2021-08-05 11:10 | P.DS ---
Admission Date: 08/04/21 Discharge Date: 08/05/21 Disposition: ROUTINE DISCHARGE Discharge Condition: GOOD Reason for Admission: Chest pain - Problems (1) Chest pain Status: Acute (2) Hypertension Status: Acute (3) DM type 2 (diabetes mellitus, type 2) Status: Acute Brief History of Present Illness: Patient is a 61-year-old male with a past medical history significant for DM 2, hypertension, HLD, sleep apnea, obesity who presented with complaint of chest pain located in the substernal chest area. Patient reported that chest pain started yesterday night. Patient rated pain as 6/10 in severity and described pain as sharp\pressure in quality. Patient indicated that chest pain is aggravated with deep breathing and relieved by nothing. Patient reported associated signs and symptoms of headache. Patient decided to present to the hospital due to worsening symptoms. Of note, patient reported that he ran out of his blood pressure medications 4 to 5 weeks ago. That an unusually large easter dinner prior to the onset of his symptoms. Hospital Course: Patient placed in observation on the medical floor. Troponin trended negative. Seen by cardiology who recommended stress test. Patient could not lie flat for the stress test. Patient chest pain appears atypical, worse with deep breathing and likely noncardiac. ACS ruled out. Patient deemed stable for discharge per cardiology. He is prescribed baby aspirin and lipitor. Vital Signs/Physical Exam: Temp Pulse Resp BP Pulse Ox 98.4 F 85 18 151/69 H 100 08/05/21 08:00 08/05/21 09:40 08/05/21 08:00 08/05/21 09:40 08/05/21 08:00 General: Alert, In no apparent distress, Oriented x3 HEENT: Normocephalic, Mucous membr. moist/pink Neck: Supple, JVD not distended Respiratory: Normal air movement Cardiovascular: No edema, Regular rate/rhythm, Normal S1 S2 Gastrointestinal: Soft and benign, Non-distended Musculoskeletal: No swelling Integumentary: No rashes Neurological: Normal speech, Normal strength at 5/5 x4 extr Laboratory Data at Discharge: WBC 13.9 K/uL (4.3-10.9) H 08/05/21 01:56 Hgb 15.6 g/dL (13.6-17.9) 08/05/21 01:56 Hct 45.9 % (39.6-49.0) 08/05/21 01:56 Plt Count 197 K/uL (152-406) 08/05/21 01:56 Sodium 135 mmol/L (136-145) L 08/05/21 01:56 Potassium 3.7 mmol/L (3.5-5.1) 08/05/21 01:56 BUN 16 mg/dL (7-18) 08/05/21 01:56 Creatinine 0.81 mg/dL (0.55-1.3) 08/05/21 01:56 Glucose 148 mg/dL (74-106) H 08/05/21 01:56 Home Medications: Lisinopril/Hydrochlorothiazide [Lisinopril-Hctz 20-12.5 mg Tab] 1 each PO DAILY 08/04/21 Aspirin [Aspirin EC 81 MG] 81 mg PO DAILY #30 tablet. 08/05/21 Atorvastatin Calcium [Lipitor] 40 mg PO BEDTIME #30 tab 08/05/21 Polyethyl Gly 3350 [Glycolax*] 17 gm PO DAILY PRN #30 udbot 08/05/21 New Medications: Aspirin [Aspirin EC 81 MG] 81 mg PO DAILY #30 tablet. Polyethyl Gly 3350 [Glycolax*] 17 gm PO DAILY PRN #30 udbot PRN Reason: Constipation Atorvastatin Calcium [Lipitor] 40 mg PO BEDTIME #30 tab Diet: ADA Activity: Ad angelina Followup: NONE,NONE [Primary Care Provider] -
[2021-08-05 12:07] VITALS: BP 150/65; TEMP 97.6
--- NOTE | 2021-08-07 11:54 | PN ---
Date of Progress Note: 08/05/2021 Mr. Sanchez was admitted to Dr. Moore and seen by Dr. Childs for atypical chest pain. [facility]. Overnight, he has normal chest pain. MT has been ruled out. His vital signs are sta ble. He is afebrile. Examination did not show any significant changes. He had an echocardiogram an d a stress test pending for today. We will see what those show before making further decisions. Con tinue medical therapy otherwise. ADDISON/MODL Voice ID: [id number] Report ID: [id number]
== END 2021-08-05 14:27 | disposition home or self-care (01) ==
LOC: ER 05:09 → ERHOLD 10:27 → 4TH 13:52
PROVIDERS: ADMIT Hospitalist; ATTEND Internal Medicine
DX: R07.89 Other chest pain (principal); I10 Essential (primary) hypertension; E11.9 Type 2 diabetes mellitus without complications; E78.5 Hyperlipidemia, unspecified; R51.9 Headache, unspecified; G47.30 Sleep apnea, unspecified; D72.829 Elevated white blood cell count, unspecified; K59.00 Constipation, unspecified; E66.9 Obesity, unspecified; Z68.38 Body mass index [BMI] 38.0-38.9, adult; Z71.3 Dietary counseling and surveillance; Z20.822 Contact with and (suspected) exposure to COVID-19
CPT/HCPCS: 36415; 71045; 71275; 80048; 81003; 82947; 83880; 84439; 84443; 84484; 85025; 85379; 93005; 93306; 99285; G0378; J1650; J2270; J2785; Q9967; U0003

== ENCOUNTER 2022-02-25 16:43 | Emergency (ER) | payer MEDICARE ==
--- OUTSIDE RECORDS SUMMARY | 2022-02-25 16:46 | XMS REPORT | Continuity of Care Document ---
:1960 Author Organization [facility] t Address [address] [place] [address] Care Team Providers Name Role Phone Pcp, Patient Does Not Have A Primary Care Physician +[phone] Doctor Unassigned, [place] Attending Clinician Unavailable RAKESH RETANA Attending Clinician Unavailable RAKESH RETANA Attending Clinician Unavailable 1, [facility] Sleep Lab Bed Attending Clinician Unavailable Rakesh Retana MD Attending Clinician Only, [facility] Test Attending Clinician Unavailable Gabe Swanson MD Attending Clinician GABE SWANSON Attending Clinician Unavailable Payers Payer Name Policy Type Policy Number Effective Date Expiration Date S ource Problems Condition Condition Condition Status Onset Resolution Last Treating Co mments Source Name Details Category Date Date Treatment Clinician Date No known No known Disease Unive rs active active ity of problems problems [facility] Allergies, Adverse Reactions, Alerts Allergy Allergy Status Severity Reaction(s) Onset Inactive Treating Comm ents Source Name Type Date Date Clinician NO KNOWN Drug Active Univers ALLERGIE Class ity of S [facility] Social History Social Habit Start Date Stop Date Quantity Comments Source Exposure to Not sure [facility] SARS-CoV-2 (event) Medica l Branch Sex Assigned At [birth year] [facility] 00:00:00 00:00:00 Medical Branch Smoking Status Start Date Stop Date Source Tobacco smoking consumption Univ [facility] Medical unknown Branch Medications Ordered Filled Start Stop Current Ordering Indication Dosage Frequency Signature Comments Components Source Medication Medication Date Date Medication? Clinician (SIG) Name Name No known 2020-04 No Univers medications -17 ity of 11:39: [place] [facility] No known 2020-04 No Univers medications 1-17 ity of 11:39: [address] No known 2020-04 No Univers medications 1-17 ity of 11:39: [address] No known 2020-04 No Univers medications 1-17 ity of 11:39: [address] No known 2020-04 No Univers medications 1-17 ity of 11:39: [address] No known 2020-04 No No known Unive rs medications 1-17 medication it y of 11:39: s [address] Vital Signs Vital Name Observation Time Observation Value Comments Source Systolic blood 2021-03-05 17:46:00 136 mm[Hg] Univer sity of pressure [facility] Diastolic blood 2021-03-05 17:46:00 79 mm[Hg] Unive rsity of pressure [facility] Heart rate 2021-03-05 17:46:00 81 /min [facility] Body temperature 2021-03-05 17:46:00 36.78 [facility] Respiratory rate 2021-03-05 17:46:00 18 /min [facility] Body height 2021-03-05 17:46:[address] [facility] Body weight 2021-03-05 17:46:[address] [facility] BMI 2021-03-05 17:46:00 36.07 kg/m2 [facility] Oxygen saturation in 2021-03-05 17:46:00 99 /min [facility] Arterial blood by [facility] Pulse oximetry Branch Procedures Procedure Date / Time Performing Clinician Source Performed AUTHORIZATION FOR 2021-10-07 05:01:00 Doctor Unassigned, No [facility] RELEASE OF [facility] Name [facility] Branch ASSIGNMENT OF BENEFITS 2021-04-14 15:44:25 Doctor Unassigned, No [facility] Name Medical Branch VACCINATIONS - CONSENTS, 2021-03-20 06:01:00 Doctor Unassigned, No [facility] ELIGIBILITY, HISTORY Name Medical Bra [facility] Encounters Start End Encounter Admission Attending Care Care Encounter Source Date/Time Date/Time Type Type Clinicians Facility Department ID 2021-10-07 2021-10-07 Orders Doctor MCKOY [id number] Univers 00:00:00 00:00:00 Only Unassigned, BRANDT [id number] ity of [place] [facility] [id number] Jaime as [id number] [facility] 009 Branch 2021-04-30 2021-04-30 Outpatient R AMBERLORETTA YAOGREGORIO [facility] [id number] Univers 09:00:00 09:00:00 AGA RETANAChanell itsteve [facility] 2021-04-14 2021-04-14 Nurse [facility] 1, [facility] Sleep Lab Bed [facility] [id number]. [id number] Univers 19:30:00 22:00:00 Visit Rakesh Retana [id number]. 10 ity of [place] [id number] [facility] [id number] [facility] 193 Branch 2021-04-14 2021-04-14 Outpatient R MAZIN LORETTAGREGORIO [facility] [id number] Univers 19:30:00 19:30:00 RAKESH RETANA itsteve [facility] 2021-04-14 2021-04-14 Laboratory Only, [facility] Test [facility] [id number]. [id number] Univers 10:00:00 10:15:00 Only Gabe Swanson [id number] ity of [place] [id number] [facility] [id number] [facility] 353 Branch 2021-04-14 2021-04-14 Outpatient R KIKI [facility] [id number] Univers 10:00:00 10:00:00 GABE itsteve of [facility] 2021-04-14 2021-04-14 Orders Doctor MCKOY [id number] Univers 00:00:00 00:00:00 Only Unassigned, BRANDT [id number] ity of [place] [facility] [id number] Jaime as [id number] [facility] 009 Branch 2021-03-20 2021-03-20 Orders Doctor MCKOY [id number] Univers 00:00:00 00:00:00 Only Unassigned, BRANDT [id number] ity of [place] [facility] [id number] Jaime as [id number] [place] [address] Branch 2021-03-05 2021-03-05 Outpatient R RAKESH RETANA [facility] [id number] Univers 11:40:00 12:56:24 RAKESH RETANA [facility] 2021-03-05 2021-03-05 Office Mazin MTNICK [id number] Univers 11:38:13 11:58:13 Visit Rakesh AMBROSIO [id number] ity of [place] [id number] [place] [id number] [address] 2021-03-05 2021-03-05 Outpatient R RAKESH RETANA [facility] [id number] Univers 11:40:00 11:40:00 RAKESH RETANA [facility] Results This patient has no known results.
--- NOTE | 2022-02-25 17:38 | ER ---
Nurse's Notes [facility] Name: Bill Sanchez Age: 61 yrs Sex: Male : 1960 Arrival Date: 02/25/2022 Time: 16:46 Bed 12 Private MD: Vivian Ramos Diagnosis: Allergic urticaria;Other allergy, sequela;Other allergy, initial encounter-Lisinopril Presentation: 02/25 16:58 Chief complaint: Patient states: Bottom lip swelling since last night. On lisinopril ll1 for 15 years. Has happened 3 times in the past year. Coronavirus screen: Vaccine status: Patient reports receiving the 2nd dose of the covid vaccine. Client denies travel out of the [place] in the last 14 days. At this time, the client does not indicate any symptoms associated with coronavirus-19. Ebola Screen: Patient denies travel to an Ebola-affected area in the 21 days before illness onset. Initial Sepsis Screen: Does the patient meet any 2 criteria? No. Patient's initial sepsis screen is negative. Does the patient have a suspected source of infection? No. Patient's initial sepsis screen is negative. Risk Assessment: Do you want to hurt yourself or someone else? Patient reports no desire to harm self or others. Onset of symptoms was February 24, 2022. 16:58 Method Of Arrival: Ambulatory ll1 16:58 Acuity: SID 4 ll1 Triage Assessment: 17:01 General: Appears in no apparent distress. Behavior is calm, cooperative, appropriate ll1 for age. Pain: Denies pain. Derm: Reports lower lip swelling. Historical: - Allergies: 16:59 No Known Allergies; ll1 - PMHx: 16:59 Diabetes - NIDDM; High Cholesterol; Hypertension; Sleep Apnea; ll1 - PSHx: 16:59 hernia repair; ll1 - Immunization history:: Client reports receiving the 2nd dose of the Covid vaccine. - Social history:: Smoking status: Patient denies any tobacco usage or history of. Vital Signs: 16:58 BP 150 / 82; Pulse 89; Resp 18; Temp 98.4; Pulse Ox 100% ; Weight 124.74 kg; Height 5 ll1 ft. 11 in. (180.34 cm); Pain 0/10; 16:58 Body Mass Index 38.35 (124.74 kg, 180.34 cm) ll1 ED Course: 16:46 Patient arrived in ED. as 16:46 Vivian Ramos is Private Physician. as 16:59 Triage completed. ll1 17:02 Arm band placed on Patient placed in an exam room, on a stretcher. ll1 17:19 Scott Lau MD is Attending Physician. kdr 17:36 Vivian Ramos is Referral Physician. kdr 18:02 Kaitlynn Ho, RN is Primary Nurse. iw Administered Medications: No medications were administered Outcome: 17:38 Discharge ordered by . kdr 18:02 Patient left the ED. iw Signatures: Scott Lau MD MD kdr Angeles Rosenthal as Kaitlynn Ho, RN RN iw Dasha Pascual RN RN ll1
--- NOTE | 2022-02-25 17:38 | EDPHYS ---
Physician Documentation [facility] Name: Bill Sanchez Age: 61 yrs Sex: Male : 1960 Arrival Date: 02/25/2022 Time: 16:46 Bed 12 Private MD: [facility] ED Physician Scott Lau HPI: 02/25 18:04 This 61 yrs old Male presents to ER via Ambulatory with complaints of Lips Swelling. kdr 18:05 Patient presents to the ED with a swelling of his lower lip that started last evening. kdr He states he gets this every once in a while perhaps 2 or 3 times over the last year. He is taking a combination antihypertensive, Zestoretic which contains lisinopril. He states that he feels that the swelling is decreasing. Onset: The symptoms/episode began/occurred suddenly, last night. Severity of symptoms: At their worst the symptoms were mild in the emergency department the symptoms have improved mildly. The patient has experienced a previous episode. The patient has not recently seen a physician. Historical: - Allergies: 16:59 No Known Allergies; ll1 - PMHx: 16:59 Diabetes - NIDDM; High Cholesterol; Hypertension; Sleep Apnea; ll1 - PSHx: 16:59 hernia repair; ll1 - Immunization history:: Client reports receiving the 2nd dose of the Covid vaccine. - Social history:: Smoking status: Patient denies any tobacco usage or history of. ROS: 18:05 Constitutional: Negative for fever, chills, and weight loss, Eyes: Negative for injury, kdr pain, redness, and discharge, Neck: Negative for injury, pain, and swelling, Cardiovascular: Negative for chest pain, palpitations, and edema, Respiratory: Negative for shortness of breath, cough, wheezing, and pleuritic chest pain, Abdomen/GI: Negative for abdominal pain, nausea, vomiting, diarrhea, and constipation, Back: Negative for injury and pain, : Negative for injury, bleeding, discharge, and swelling, MS/Extremity: Negative for injury and deformity, Skin: Negative for injury, rash, and discoloration, Neuro: Negative for headache, weakness, numbness, tingling, and seizure activity. Psych: Negative for depression, anxiety, suicide ideation, homicidal ideation, and hallucinations, Allergy/Immunology: Negative for hives, rash, and allergies, Endocrine: Negative for neck swelling, polydipsia, polyuria, polyphagia, and marked weight changes, Hematologic/Lymphatic: Negative for swollen nodes, abnormal bleeding, and unusual bruising. 18:05 ENT: Positive for Patient has mild swelling to his entire lower lip. Exam: 18:05 Constitutional: This is a well developed, well nourished patient who is awake, alert, kdr and in no acute distress. Head/Face: Normocephalic, atraumatic. Eyes: Pupils equal round and reactive to light, extra-ocular motions intact. Lids and lashes normal. Conjunctiva and sclera are non-icteric and not injected. Cornea within normal limits. Periorbital areas with no swelling, redness, or edema. Neck: Trachea midline, no thyromegaly or masses palpated, and no cervical lymphadenopathy. Supple, full range of motion without nuchal rigidity, or vertebral point tenderness. No Meningismus. Chest/axilla: Normal chest wall appearance and motion. Nontender with no deformity. No lesions are appreciated. Cardiovascular: Regular rate and rhythm with a normal S1 and S2. No gallops, murmurs, or rubs. Normal PMI, no JVD. No pulse deficits. Respiratory: Lungs have equal breath sounds bilaterally, clear to auscultation and percussion. No rales, rhonchi or wheezes noted. No increased work of breathing, no retractions or nasal flaring. Abdomen/GI: Soft, non-tender, with normal bowel sounds. No distension or tympany. No guarding or rebound. No evidence of tenderness throughout. Back: No spinal tenderness. No costovertebral tenderness. Full range of motion. Skin: Warm, dry with normal turgor. Normal color with no rashes, no lesions, and no evidence of cellulitis. MS/ Extremity: Pulses equal, no cyanosis. Neurovascular intact. Full, normal range of motion. Neuro: Awake and alert, GCS 15, oriented to person, place, time, and situation. Cranial nerves II-XII grossly intact. Motor strength 5/5 in all extremities. Sensory grossly intact. Cerebellar exam normal. Normal gait. Psych: Awake, alert, with orientation to person, place and time. Behavior, mood, and affect are within normal limits. 18:05 ENT: Mouth: Lips: moist, Mildly swollen lower lip. Vital Signs: 16:58 BP 150 / 82; Pulse 89; Resp 18; Temp 98.4; Pulse Ox 100% ; Weight 124.74 kg; Height 5 ll1 ft. 11 in. (180.34 cm); Pain 0/10; 16:58 Body Mass Index 38.35 (124.74 kg, 180.34 cm) ll1 MDM: 17:38 Patient medically screened. kdr 18:05 Data reviewed: vital signs, nurses notes, lab test result(s), radiologic studies. kdr Counseling: I had a detailed discussion with the patient and/or guardian regarding: the historical points, exam findings, and any diagnostic results supporting the discharge/admit diagnosis, the need for outpatient follow up. Administered Medications: No medications were administered Disposition Summary: 02/25/22 17:38 Discharge Ordered Location: Home kdr Problem: new kdr Symptoms: have improved kdr Condition: Stable kdr Diagnosis - Allergic urticaria kdr - Other allergy, sequela kdr - Other allergy, initial encounter - Lisinopril kdr Followup: kdr - With: Affairs, Veterans - When: 1 - 2 days - Reason: If symptoms return, Further diagnostic work-up, Recheck today's complaints, Continuance of care, Re-evaluation by your physician Discharge Instructions: - Discharge Summary Sheet kdr - Allergies, Adult kdr - Drug Allergy, [id number] kdr - Hypertension, Adult, [id number] kdr Forms: - Medication Reconciliation Form kdr - Thank You Letter kdr Prescriptions: - losartan 50 mg Oral tablet - take 1 tablet by ORAL route once daily; 21 tablet; Refills: 0, Product kdr Selection Permitted - Hydrochlorothiazide 12.5 mg Oral Capsule - take 1 tablet by ORAL route once daily; 21 tablet; Refills: 0, Product kdr Selection Permitted Signatures: Scott Lau MD MD kdr Dasha Pascual RN RN ll1
[2022-02-25 18:22] VITALS: BP 150/82; TEMP 98.4; O2SAT 100
== END 2022-02-25 18:02 | disposition home or self-care (01) ==
LOC: ER 16:43
DX: L50.0 Allergic urticaria (principal); Z88.8 Allergy status to other drugs, medicaments and biological substances
CPT/HCPCS: 99281

== ENCOUNTER 2022-11-29 11:43 | Emergency (ER) | payer OTHER ==
--- OUTSIDE RECORDS SUMMARY | 2022-11-29 11:46 | XMS REPORT | Continuity of Care Document ---
:1960 Author Organization [facility] t Address [address] [place] [address] Care Team Providers Name Role Phone Pcp, Patient Does Not Have A Primary Care Physician [id number] Doctor Unassigned, [place] Attending Clinician Unavailable RAKESH RETANA Attending Clinician Unavailable RAKESH RETANA Attending Clinician Unavailable 1, [facility] Sleep Lab Bed Attending Clinician Unavailable Rakesh Retana MD Attending Clinician Only, [facility] Test Attending Clinician Unavailable Gabe Swanson MD Attending Clinician GABE SWANSON Attending Clinician Unavailable Payers Payer Name Policy Type Policy Number Effective Date Expiration Date S ource Problems Condition Condition Condition Status Onset Resolution Last Treating Co mments Source Name Details Category Date Date Treatment Clinician Date No known No known Disease Unive rs active active ity of problems problems [facility] Allergies, Adverse Reactions, Alerts Allergy Allergy Status Severity Reaction(s) Onset Inactive Treating Comm ents Source Name Type Date Date Clinician NO KNOWN Drug Active Univers ALLERGIE Class ity of S [facility] Social History Social Habit Start Date Stop Date Quantity Comments Source Exposure to Not sure [facility] SARS-CoV-2 (event) Medica l Branch Sex Assigned At [birth year] [facility] [place] [facility] 00:00:00 Medical Branch Smoking Status Start Date Stop Date Source Tobacco smoking consumption [facility] Medical unknown Branch Medications Ordered Filled Start Stop Current Ordering Indication Dosage Frequency Signature Comments Components Source Medication Medication Date Date Medication? Clinician (SIG) Name Name No known 2020-04 No Univers medications -17 ity of 11:39: [place] [address] Medical Branch No known 2020-04 No Univers medications 1-17 ity of 11:39: [address] No known 2020-04 No Univers medications 1-17 ity of 11:39: [address] No known 2020-04 No Univers medications -17 ity of 11:39: [address] No known 2020-04 No Univers medications -17 ity of 11:39: [address] No known 2020-04 No No known Unive rs medications 1-17 medication it y of 11:39: s [address] Vital Signs Vital Name Observation Time Observation Value Comments Source Systolic blood 2021-03-05 17:46:00 136 mm[Hg] Univer sity of pressure [facility] Diastolic blood 2021-03-05 17:46:00 79 mm[Hg] Unive rsity of [facility] Heart rate 2021-03-05 17:46:00 81 /min [facility] Body temperature 2021-03-05 17:46:00 36.78 Stephanie [facility] Respiratory rate 2021-03-05 17:46:00 18 /min [facility] Body height 2021-03-05 17:46:00 177.8 cm [facility] Body weight 2021-03-05 17:46:00 114.034 kg [facility] BMI 2021-03-05 17:46:00 36.07 kg/m2 [facility] Oxygen saturation in 2021-03-05 17:46:00 99 /min [facility] Arterial blood by [facility] Pulse oximetry Branch Procedures Procedure Date / Time Performing Clinician Source Performed AUTHORIZATION FOR 2021-10-07 05:01:00 Doctor Unassigned, No [facility] RELEASE OF [facility] Name [facility] Branch ASSIGNMENT OF BENEFITS 2021-04-14 15:44:25 Doctor Unassigned, No [facility] Name [facility] Branch VACCINATIONS - CONSENTS, 2021-03-20 06:01:00 Doctor Unassigned, No [facility] ELIGIBILITY, HISTORY Name Medical Bra [facility] Encounters Start End Encounter Admission Attending Care Care Encounter Source Date/Time Date/Time Type Type Clinicians Facility Department ID 2021-10-07 2021-10-07 Orders Doctor MCKOY [id number] Univers 00:00:00 00:00:00 Only Unassigned, BRANDT [id number] ity of [place] [facility] [id number] Jaime as [id number] [facility] [address] [place] 2021-04-30 2021-04-30 Outpatient R HAROLDOLORETTA STANFORDGREGORIO [facility] [id number] Univers 09:00:00 09:00:00 HAROLDOCANDELARIAMAXIMILIANLORETTAGREGORIO itsteve [facility] 2021-04-14 2021-04-14 Interior Mechanic 1, [facility] Sleep Lab Bed [facility] [id number]. [id number] Univers 19:30:00 22:00:00 Visit Rakesh Retana [id number]. 10 ity of [place] [id number] [facility] [id number] [facility] [address] Branch 2021-04-14 2021-04-14 Outpatient R LORETTA RETANAMDChanell [facility] [id number] Univers 19:30:00 19:30:00 HAR[address]IMIL[address]RAKESH itsteve [facility] 2021-04-14 2021-04-14 Laboratory Only, [facility] Test [facility] [id number]. [id number] Univers 10:00:00 10:15:00 Only Gabe Swanson [id number] ity of [place] [id number] [facility] [id number] [facility] [address] Branch 2021-04-14 2021-04-14 Outpatient R KIKI [facility] [id number] Univers 10:00:00 10:00:[address] [facility] 2021-04-14 2021-04-14 Orders Doctor MCKOY [id number] Univers 00:00:00 00:00:00 Only Unassigned, BRANDT [id number] ity of [place] [facility] [id number] Jaime as [phone] [facility] [address] 2021-03-20 2021-03-20 Orders Doctor MCKOY [id number] Univers 00:00:00 00:00:00 Only Unassigned, BRANDT [id number] ity of [facility] [id number] Jaime as [id number] [facility] [address] Branch 2021-03-05 2021-03-05 Outpatient R RAKESH RETANA [facility] [id number] Univers 11:40:00 12:56:[address] [facility] 2021-03-05 2021-03-05 Office Mazin [facility] [id number] Univers 11:38:13 11:58:13 Visit Rakesh AMBROSIO [id number] ity of [place] [id number] [place] gomez PROFESSIO [phone] [place] [id number] [facility] 2021-03-05 2021-03-05 Outpatient R RAKESH RETANA [facility] [id number] Univers 11:40:00 11:40:[address] [facility] Results This patient has no known results.
--- NOTE | 2022-11-29 12:20 | EDPHYS ---
Physician Documentation [facility] Name: Bill Sanchez Age: 62 yrs Sex: Male : 1960 Arrival Date: 11/29/2022 Time: 11:43 Bed IW2 Private MD: ED Physician Scott Lau HPI: 11/29 12:22 This 62 yrs old Male presents to ER via Ambulatory with complaints of Constipation. kb 12:22 The patient presents with constipation. Onset: The symptoms/episode began/occurred 2 kb day(s) ago. The symptoms do not radiate. Associated signs and symptoms: Pertinent positives: constipation, Pertinent negatives: nausea, vomiting, and diarrhea, fever. The symptoms are described as constant. Modifying factors: The symptoms are alleviated by nothing, the symptoms are aggravated by nothing. Severity of pain: At its worst the pain was moderate in the emergency department the pain is unchanged. The patient has experienced similar episodes in the past. The patient has not recently seen a physician. Pt reports he suffers from chronic constipation and hasn't had a BM for a day or two. States he used to take magnesium citrate when this happened, but he was unable to find it at [facility] or [facility] so he thought they stopped selling it OTC. Came in to see if we had that or something similar. Denies abd pain. fever, n/v/d. . Historical: - Allergies: 12:12 No Known Allergies; ss - PMHx: 12:12 Diabetes - NIDDM; High Cholesterol; Hypertension; Sleep Apnea; Chronic constipation; ss - PSHx: 12:12 hernia repair; ss - Immunization history:: Client reports receiving the 2nd dose of the Covid vaccine. - Social history:: Smoking status: Patient reports the use of cigarette tobacco products, smokes one pack cigarettes per day. ROS: 12:21 Constitutional: Negative for fever, chills, and weight loss. kb 12:21 Abdomen/GI: Positive for constipation, Negative for abdominal pain, nausea and vomiting, diarrhea. 12:21 All other systems are negative. Exam: 12:21 Constitutional: This is a well developed, well nourished patient who is awake, alert, kb and in no acute distress. Head/Face: Normocephalic, atraumatic. ENT: Moist Mucous membranes Cardiovascular: Regular rate and rhythm with a normal S1 and S2. No gallops, murmurs, or rubs. No pulse deficits. Respiratory: Respirations even and unlabored. No increased work of breathing. Talking in full sentences Skin: Warm, dry with normal turgor. Normal color. MS/ Extremity: Pulses equal, no cyanosis. Neurovascular intact. Full, normal range of motion. Neuro: Awake and alert, GCS 15, oriented to person, place, time, and situation. Moves all extremities. Normal gait. 12:21 Abdomen/GI: Inspection: obese Bowel sounds: normal, Palpation: abdomen is soft and non-tender, in all quadrants. Vital Signs: 12:09 BP 156 / 78; Pulse 102; Resp 17; Temp 98.2(TE); Pulse Ox 100% on R/A; Weight 127.01 kg; ss Height 5 ft. 10 in. ; Pain 0/10; 12:09 Body Mass Index 40.18 (127.01 kg, 177.8 cm) ss 12:09 Pain Scale: Adult ss MDM: 12:18 Patient medically screened. kb 12:21 Data reviewed: vital signs, nurses notes. kb 12:22 Differential diagnosis: bowel obstruction, non-specific abd pain, constipation, fecal kb impaction. Test considered but Not performed: Labs: cbc, bmp considered, but pt has no abd pain, fever, n/v/d. . X-ray: KUB considered, but pt denies abd pain and states he has had this same problem multiple times in the past. 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 ED course: Pt states he knows the mag citrate will work because it has in the past when he had this same feeling. Prefers to go home now rather than wait here. Administered Medications: 12:20 Drug: Magnesium Citrate PO Liquid 300 ml Route: PO; ss 12:24 Follow up: Response: Medication administered at discharge. ss Disposition Summary: 11/29/22 12:19 Discharge Ordered Location: Home kb Condition: Stable kb Diagnosis - Constipation kb Followup: kb - With: Emergency Department - When: As needed - Reason: Worsening of condition Followup: kb - With: Private Physician - When: 2 - 3 days - Reason: Recheck today's complaints, Continuance of care, Re-evaluation by your physician Discharge Instructions: - Discharge Summary Sheet kb - Constipation, Adult, Mmiv-ag-Nuhy kb Forms: - Medication Reconciliation Form kb - Thank You Letter kb - Antibiotic Education kb - Prescription Opioid Use kb - Patient Portal Instructions kb - Leadership Thank You Letter kb Signatures: Naheed Alvarado FNP-C FNP-Ckb Blanchard, Shelby, RN RN ss
--- NOTE | 2022-11-29 12:20 | ER ---
Nurse's Notes [facility] Name: Bill Sanchez Age: 62 yrs Sex: Male : 1960 Arrival Date: 11/29/2022 Time: 11:43 Bed IW2 Private MD: Diagnosis: Constipation Presentation: 11/29 12:09 Chief complaint: Patient states: Constipation. Pt reports he used to take Mag citrate ss which helped, but they do not have it anymore. Last BM was reportedly yesterday or the day before. Coronavirus screen: Client denies travel out of the [place] in the last 14 days. Ebola Screen: Patient denies exposure to infectious person. Patient denies travel to an Ebola-affected area in the 21 days before illness onset. Initial Sepsis Screen: Does the patient meet any 2 criteria? No. Patient's initial sepsis screen is negative. Does the patient have a suspected source of infection? No. Patient's initial sepsis screen is negative. Risk Assessment: Do you want to hurt yourself or someone else? Patient reports no desire to harm self or others. Onset of symptoms was November 28, 2022. 12:09 Method Of Arrival: Ambulatory ss 12:09 Acuity: SID 3 ss Historical: - Allergies: 12:12 No Known Allergies; ss - PMHx: 12:12 Diabetes - NIDDM; High Cholesterol; Hypertension; Sleep Apnea; Chronic constipation; ss - PSHx: 12:12 hernia repair; ss - Immunization history:: Client reports receiving the 2nd dose of the Covid vaccine. - Social history:: Smoking status: Patient reports the use of cigarette tobacco products, smokes one pack cigarettes per day. Screenin:23 [facility] ED Fall Risk Assessment (Adult) History of falling in the last 3 months, ss including since admission No falls in past 3 months (0 pts). Abuse screen: Denies threats or abuse. Denies injuries from another. Nutritional screening: No deficits noted. Tuberculosis screening: Never had TB. Assessment: 12:23 General: Appears in no apparent distress. comfortable, Behavior is calm, cooperative. ss Pain: Denies pain. Neuro: Level of Consciousness is awake, alert, obeys commands. Respiratory: Airway is patent Respiratory effort is even, unlabored. GI: Reports constipation, "I just feel like I have to go, but I can't". Derm: Skin is intact, is healthy with good turgor, Skin is pink, warm \\T\\ dry. normal. Vital Signs: 12:09 BP 156 / 78; Pulse 102; Resp 17; Temp 98.2(TE); Pulse Ox 100% on R/A; Weight 127.01 kg; ss Height 5 ft. 10 in. ; Pain 0/10; 12:09 Body Mass Index 40.18 (127.01 kg, 177.8 cm) ss 12:09 Pain Scale: Adult ss ED Course: 11:46 Patient arrived in ED. rg4 11:55 Naheed Alvarado FNP-C is [facility]. kb 11:55 Scott Lau MD is Attending Physician. kb 12:12 Triage completed. ss 12:12 Arm band placed on left wrist. ss 12:23 Lucila Diop, RN is Primary Nurse. ss 12:23 Patient has correct armband on for positive identification. ss 12:23 No provider procedures requiring assistance completed. Patient did not have IV access ss during this emergency room visit. Administered Medications: 12:20 Drug: Magnesium Citrate PO Liquid 300 ml Route: PO; ss 12:24 Follow up: Response: Medication administered at discharge. ss Medication: 12:23 VIS not applicable for this client. ss Outcome: 12:19 Discharge ordered by . kb 12:23 Discharged to home ambulatory. ss 12:23 Condition: good 12:23 Discharge instructions given to patient, Instructed on discharge instructions, follow up and referral plans. Demonstrated understanding of instructions, follow-up care. 12:28 Patient left the ED. ss Signatures: Naheed Alvarado FNP-C FNP-Ckb Blanchard, Shelby, RN RN Mina Estela rg4
[2022-11-29] MEDS ORDERED: MAGNESIUM CITRATE 300 ML BOT ONE (12:30)
[2022-11-29 12:51] VITALS: BP 156/78; TEMP 98.2; O2SAT 100
== END 2022-11-29 12:28 | disposition home or self-care (01) ==
LOC: ER 11:43
DX: K59.00 Constipation, unspecified (principal); F17.210 Nicotine dependence, cigarettes, uncomplicated
CPT/HCPCS: 99283

== ENCOUNTER 2024-06-30 10:53 | Inpatient (IN) | payer OTHER ==
--- NOTE | 2024-06-30 12:12 | RAD REPORT ---
EXAMINATION: US LEFT LOWER EXTREMITY VENOUS DOPPLER CLINICAL INDICATION: SWELLING TECHNIQUE: Complete bilateral duplex sonography of the LEFT lower extremity veins was performed. The examination included compression for vein patency, color Doppler imaging and flow augmentation in response to distal compression of the distal external iliac, common femoral, femoral, popliteal, tibi al, and great and small saphenous veins. COMPARISON: No prior exam. FINDINGS: Duplex sonography testing of the veins of the LEFT lower extremity was performed. Color flow imaging shows all veins to be compressible with [id number] color filling. Pulsatile and phasic flow is present within all lower extremity deep and superficial veins examined. IMPRESSION: There is no deep vein or superficial vein thrombosis.
[2024-06-30 12:34] LABS: Absolute Eosinophils 0.1 K/uL (0-0.5); Absolute Lymphocytes (CBC) 0.8 K/uL (0.7-4.9); Absolute Monocytes 0.6 K/uL (0.1-1.3); Absolute Neutrophil 6.6 K/uL (1.8-8.0); Basophils % 0.3 % (0-1.3); Eosinophils % 1.2 % (0-4.4); Hematocrit 43.4 % (39.6-49.0); Lymphocytes % 10.2 % (15.3-44.8); MCH 29.9 pg (27.0-35.0); MCHC 34.6 g/dL (32.0-36.0); MCV 86.4 fL (80-100); MPV 7.9 fL (7.6-11.3); Monocytes % 7.9 % (3.3-12.3); Neutrophils % 80.4 % (41.7-73.7); Platelets 278 thou/uL (152-406); RBC Red Blood Cell Count 5.02 M/uL (4.33-5.43); Red Cell Distribution Width 13.6 % (12.1-15.2)
[2024-06-30 12:40] LABS: Albumin 3.5 g/dL (3.4-5.0); Albumin/Globulin Ratio 0.8 (1.1-1.8); Anion Gap 6.7 mEq/L (5.0-15.0); Bilirubin Total 0.5 mg/dL (0.2-1.0); Globulin 4.4 g/dL (2.3-3.5); Potassium 3.7 mEq/L (3.5-5.1); Protein, Total 7.9 g/dL (6.4-8.2)
[2024-06-30 12:46] LABS: PT Prothrombin Time 12.8 SECONDS (10-13.0); Protime INR 1.13
--- NOTE | 2024-06-30 14:56 | ER ---
Nurse's Notes [facility] Name: Bill Sanchez Age: 64 yrs Sex: Male : 1960 Arrival Date: 06/30/2024 Time: 10:53 Bed 15 Private MD: Diagnosis: Cellulitis to left lower extremity Presentation: 06/30 11:09 Coronavirus screen: At this time, the client does not indicate any symptoms associated ld1 with coronavirus-19. Ebola Screen: No symptoms or risks identified at this time. Risk Assessment: Do you want to hurt yourself or someone else? Patient reports no desire to harm self or others. Onset of symptoms was June 30, 2024. 11:09 Method Of Arrival: Ambulatory ld1 11:09 Acuity: SID 3 ld1 11:16 Chief complaint: [facility] [place] [facility] lower leg wound. Pt reports leg has hb been weeping clear fluid for several days. Initial Sepsis Screen: Does the patient meet any 2 criteria? No. Patient's initial sepsis screen is negative. Does the patient have a suspected source of infection? No. Patient's initial sepsis screen is negative. Historical: - Allergies: 11:09 No Known Allergies; ld1 - PMHx: 11:09 chronic constipation; Diabetes - NIDDM; High Cholesterol; Hypertension; Sleep Apnea; ld1 - PSHx: 11:09 hernia repair; ld1 - Immunization history:: Adult Immunizations up to date. - Infectious Disease History:: Denies. - Social history:: Smoking status: Patient denies any tobacco usage or history of. - Family history:: not pertinent. Screenin:15 [facility] ED Fall Risk Assessment (Adult) History of falling in the last 3 months, kj2 including since admission No falls in past 3 months (0 pts) Confusion or Disorientation No (0 pts) Intoxicated or Sedated No (0 pts) Impaired Gait No (0 pts) Mobility Assist Device Used No (0 pt) Altered Elimination No (0 pt) Score/Fall Risk Level 0 - 2 = Low Risk Maintained a safe environment, Hourly rounding (assess needs \T\ fall precautionary measures) done. Abuse screen: Denies threats or abuse. Denies injuries from another. Nutritional screening: No deficits noted. Tuberculosis screening: No symptoms or risk factors identified. Assessment: 12:15 General: Appears in no apparent distress. Behavior is calm, cooperative. Neuro: Level kj2 of Consciousness is awake, alert, obeys commands, Oriented to person, place, time, situation. Cardiovascular: Patient's skin is warm and dry. Respiratory: Airway is patent Respiratory effort is even, unlabored. GI: No signs and/or symptoms were reported involving the gastrointestinal system. : No signs and/or symptoms were reported regarding the genitourinary system. 12:15 Pain: Complains of pain in left leg Pain currently is 3 out of 10 on a pain scale. kj2 14:16 Reassessment: Patient appears in no apparent distress at this time. Patient and/or kj2 family updated on plan of care and expected duration. Pain level reassessed. Patient is alert, oriented x 3, equal unlabored respirations, skin warm/dry/pink. 15:15 Reassessment: Patient appears in no apparent distress at this time. Patient and/or kj2 family updated on plan of care and expected duration. Pain level reassessed. Patient is alert, oriented x 3, equal unlabored respirations, skin warm/dry/pink. 16:08 Reassessment: Patient appears in no apparent distress at this time. Patient and/or kj2 family updated on plan of care and expected duration. Pain level reassessed. Patient is alert, oriented x 3, equal unlabored respirations, skin warm/dry/pink. 17:00 Reassessment: Patient appears in no apparent distress at this time. Patient and/or kj2 family updated on plan of care and expected duration. Pain level reassessed. Patient is alert, oriented x 3, equal unlabored respirations, skin warm/dry/pink. 18:37 Reassessment: Patient appears in no apparent distress at this time. Patient and/or kj2 family updated on plan of care and expected duration. Pain level reassessed. Patient is alert, oriented x 3, equal unlabored respirations, skin warm/dry/pink. 19:30 Reassessment: Patient appears in no apparent distress at this time. Patient and/or kj2 family updated on plan of care and expected duration. Pain level reassessed. Patient is alert, oriented x 3, equal unlabored respirations, skin warm/dry/pink. 20:17 Reassessment: Patient appears in no apparent distress at this time. Patient and/or kj2 family updated on plan of care and expected duration. Pain level reassessed. Patient is alert, oriented x 3, equal unlabored respirations, skin warm/dry/pink. Vital Signs: 11:16 BP 181 / 104; Pulse 94; Resp 18; Temp 97.8(O); Pulse Ox 97% on R/A; Weight 156.04 kg; hb Height 5 ft. 10 in. ; Pain /; 14:15 BP 192 / 95; Pulse 87; Resp 18; Pulse Ox 100% on R/A; kj2 16:18 BP 165 / 85; Pulse 88; Resp 20; Pulse Ox 96% ; kj2 17:30 BP 164 / 84; Pulse 82; Resp 18; Pulse Ox 98% on R/A; kj2 18:38 BP 164 / 84; Pulse 86; Resp 18; Pulse Ox 100% on R/A; kj2 20:15 BP 168 / 85; Pulse 88; Resp 20; Temp 97.9; Pulse Ox 100% on R/A; kj2 11:16 Body Mass Index 49.36 (156.04 kg, 177.8 cm) hb 11:16 Pain Scale: Adult hb ED Course: 10:58 Patient arrived in ED. mr 10:59 Angelito Begum MD is Attending Physician. rt 11:09 Dorothy Starr, RN is Primary Nurse. ld1 11:09 Arm band placed on right wrist. ld1 11:10 Triage completed. ld1 11:54 Extremity Venous Uni Ltd US In Process Unspecified. EDMS 12:11 Initial lab(s) drawn, by ga, sent to lab. First set of blood cultures drawn by ga. me1 12:15 Patient has correct armband on for positive identification. Bed in low position. Call kj2 light in reach. Side rails up X 1. Provided Education on: call light. 12:15 Inserted saline lock: 20 gauge in right antecubital area, using aseptic technique. me1 12:16 Blood Culture Adult (2) Sent. me1 12:16 CBC with Diff Sent. me1 12:16 CMP Sent. me1 12:16 Lactate w/ 2H reflex if indic. Sent. me1 12:16 Protime (+inr) Sent. me1 12:16 Ptt, Activated Sent. me1 12:24 Second set of blood cultures drawn by ga. me1 15:04 [facility] called. ty 15:13 transferred twice and then disconnected. ty 16:51 [facility] called, spoke with dragline operator helper 6 who advised the transfer center closes at 4PM. ty 16:54 [facility] Notification Hot[facility] called, spoke with Cherie. ty 17:03 received [place] Notification number ([id number]) - transferrred to [facility]. ty 17:06 Placed on hold and disconnected. ty 17:08 Spoke with patient in regards to difficulty of speaking with [facility], Patient advised he ty would prefer to stay near his home instead of being transported to [place]. Notified ED physician of other patient wanting to be admitted to the hospital he is currently in. 17:37 Rojelio Cunningham MD is Hospitalizing Provider. rt 21:55 Patient admitted, IV remains in place. kj2 Administered Medications: 16:18 Drug: vancoMYCIN IVPB 1 grams IVPB once over 2 hrs Route: IVPB; Infused Over: 2 hrs; kj2 Site: right antecubital; Medication: 13:22 VIS not applicable for this client. kj2 Outcome: 14:55 ER care complete, transfer ordered by . rt 17:37 Decision to Hospitalize by Provider. rt 21:55 Admitted to Med/surg accompanied by tech, kj2 21:55 Condition: stable 21:55 Instructed on the need for admit, 21:56 Patient left the ED. kj2 Signatures: Dispatcher [employer] EDShelbie Rizzo, Reg Reg mr VillanuevaKaylie, RN LIBBY Dorothy Starr RN RN [email or web address] Angelito Begum MD MD rt Sarah Magallon RN RN ga1 Alexis Griffiths Krystal, RN RN kj2
--- NOTE | 2024-06-30 14:56 | EDPHYS ---
Physician Documentation [facility] Name: Bill Sanchez Age: 64 yrs Sex: Male : 1960 Arrival Date: 06/30/2024 Time: 10:53 Bed 15 Private MD: ED Physician Angelito Begum HPI: 06/30 12:49 This 64 yrs old Male presents to ER via Ambulatory with complaints of Wound Check. rt 12:49 Patient presents to the ED with swelling to the left lower extremity for several weeks, rt stated that over the past several days, it is weeping fluid, reports redness to the area now. Patient states that he is soaking his socks and shoes due to the weeping. Was sent home from work, told not come back until it gets better. Sent to the [facility] who saw a wound to the posterior of the leg. He denies other acute complaints at this time, symptoms are moderate in severity, no other aggravating or alleviating factors.. Historical: - Allergies: 11:09 No Known Allergies; ld1 - PMHx: 11:09 chronic constipation; Diabetes - NIDDM; High Cholesterol; Hypertension; Sleep Apnea; ld1 - PSHx: 11:09 hernia repair; ld1 - Immunization history:: Adult Immunizations up to date. - Infectious Disease History:: Denies. - Social history:: Smoking status: Patient denies any tobacco usage or history of. - Family history:: not pertinent. ROS: 12:49 Constitutional: Negative for fever, chills, and weight loss, Cardiovascular: Negative rt for chest pain, palpitations, and edema, Respiratory: Negative for shortness of breath, cough, wheezing, and pleuritic chest pain, Abdomen/GI: Negative for abdominal pain, nausea, vomiting, diarrhea, and constipation, Neuro: Negative for headache, weakness, numbness, tingling, and seizure, 12:49 MS/extremity: Positive for Swelling, wound, Exam: 12:49 Constitutional: This is a well developed, well nourished patient who is awake, alert, rt and in no acute distress. 12:49 Head/Face: Normocephalic, atraumatic. Chest/axilla: Normal chest wall appearance and motion. Nontender with no deformity. No lesions are appreciated. Cardiovascular: Regular rate and rhythm with a normal S1 and S2. No gallops, murmurs, or rubs. Normal PMI, no JVD. No pulse deficits. Respiratory: Lungs have equal breath sounds bilaterally, clear to auscultation and percussion. No rales, rhonchi or wheezes noted. No increased work of breathing, no retractions or nasal flaring. Abdomen/GI: Soft, non-tender, with normal bowel sounds. No distension or tympany. No guarding or rebound. No evidence of tenderness throughout. 12:49 ECG was reviewed by the Attending Physician. 12:49 Musculoskeletal/extremity: Erythema, 4+ edema noted to the left lower extremity, distally. There is a wound with seepage of foul-smelling fluid from it. Pulses, motor, sensation are intact.. Vital Signs: 11:16 BP 181 / 104; Pulse 94; Resp 18; Temp 97.8(O); Pulse Ox 97% on R/A; Weight 156.04 kg; hb Height 5 ft. 10 in. ; Pain 1/10; 14:15 BP 192 / 95; Pulse 87; Resp 18; Pulse Ox 100% on R/A; kj2 16:18 BP 165 / 85; Pulse 88; Resp 20; Pulse Ox 96% ; kj2 17:30 BP 164 / 84; Pulse 82; Resp 18; Pulse Ox 98% on R/A; kj2 18:38 BP 164 / 84; Pulse 86; Resp 18; Pulse Ox 100% on R/A; kj2 20:15 BP 168 / 85; Pulse 88; Resp 20; Temp 97.9; Pulse Ox 100% on R/A; kj2 11:16 Body Mass Index 49.36 (156.04 kg, 177.8 cm) hb 11:16 Pain Scale: Adult hb MDM: 11:15 Medical Screening Exam initiated rt 18:56 Differential diagnosis: Cellulitis, DVT. Data reviewed: vital signs, nurses notes. Data rt reviewed: lab test result(s), EKG, radiologic studies. Consideration of Admission/Observation Patient was admitted/placed on observation. I considered the following discharge prescriptions or medication management in the emergency department Medications were administered in the Emergency Department. See MAR. Care significantly affected by the following chronic conditions: Diabetes. Counseling: I had a detailed discussion with the patient and/or guardian regarding the historical points, exam findings, and any diagnostic results supporting the discharge/admit diagnosis, lab results, radiology results, the need for further work-up and treatment in the hospital. Response to treatment: There is no appreciated change of the patient's symptoms at this time. 06/30 11:28 Order name: Blood Culture Adult (2) rt 06/30 11:28 Order name: CBC with Diff; Complete Time: 12:53 rt 06/30 11:28 Order name: CMP; Complete Time: 12:53 rt 06/30 11:28 Order name: Lactate w/ 2H reflex if indic.; Complete Time: 12:53 rt 06/30 11:28 Order name: Protime (+inr); Complete Time: 12:53 rt 06/30 11:28 Order name: Ptt, Activated rt 06/30 11:28 Order name: Wound Culture rt 06/30 12:55 Order name: Glucose, Ancillary Testing; Complete Time: 14:14 EDMS 06/30 20:01 Order name: Urinalysis w/ reflexes EDMS 06/30 20:01 Order name: CBC with Automated Diff EDMS 06/30 20:01 Order name: CBC with Automated Diff EDMS 06/30 20:01 Order name: Comprehensive Metabolic Panel EDMS 06/30 20:01 Order name: Comprehensive Metabolic Panel EDMS 06/30 11:28 Order name: Extremity Venous Uni Ltd US; Complete Time: 12:35 rt 06/30 11:28 Order name: Accucheck; Complete Time: 13:03 rt 06/30 11:28 Order name: Cardiac monitoring; Complete Time: 13:03 rt 06/30 11:28 Order name: EKG - Nurse/Tech; Complete Time: 13:03 rt 06/30 11:28 Order name: IV Saline Lock - Large Bore; Complete Time: 12:16 rt 06/30 11:28 Order name: Labs collected and sent; Complete Time: 12:16 rt 06/30 11:28 Order name: O2 Per Protocol; Complete Time: 11:39 rt 06/30 11:28 Order name: O2 Sat Monitoring; Complete Time: 11:39 rt 06/30 11:28 Order name: Vital Signs; Complete Time: 12:16 rt EC:49 Rate is 87 beats/min. Rhythm is regular, Normal Sinus Rhythm with Unifocal PVCs. QRS rt [place] is Normal. [place] interval is normal. QRS interval is normal. QT interval is normal. No Q waves. T waves are Normal. No ST changes noted. Interpreted by me. Administered Medications: 16:18 Drug: vancoMYCIN IVPB 1 grams IVPB once over 2 hrs Route: IVPB; Infused Over: 2 hrs; kj2 Site: right antecubital; Disposition Summary: 06/30/24 17:37 Hospitalization Ordered Notes: Hospitalization Status: Inpatient Admission rt Provider: Rojelio Cunningham rt Location: Telemetry/MedSurg (Inpatient) rt Condition: Stable(06/30/24 17:37) rt Problem: new(06/30/24 17:37) rt Symptoms: are unchanged(06/30/24 17:37) rt Bed/Room Type: Standard rt Room Assignment: 215(06/30/24 20:03) Diagnosis - Cellulitis to left lower extremity rt Forms: - Medication Reconciliation Form rt - SBAR form rt - Leadership Thank You Letter rt Signatures: Dispatcher [employer] Taryn Linton RN RN cg Dorothy Starr RN RN ld1 Angelito Begum MD MD rt Cindy Maldonado RN RN kj2 Corrections: (The following items were deleted from the chart) 11:28 11:28 Extremity Venous Uni Ltd+[email or web address] ordered. EDOR EDMS 17:36 14:55 Dr. rt rt 17:36 14:55 [facility] rt rt 17:36 14:55 Higher level of care rt rt 17:36 14:55 Stable rt rt 17:36 14:55 new rt rt 17:36 14:55 are unchanged rt rt 17:36 14:55 Cellulitis of the left lower extremity rt rt 20:03 17:37 rt cg
[2024-06-30] MEDS ORDERED: VANCOMYCIN 1 GM/VIAL ONE (16:10)
[2024-06-30] MEDS ORDERED: NA CHLORIDE 0.9% 250 ML ONE (16:11)
--- NOTE | 2024-06-30 19:53 | P.HP ---
Certification for Inpatient Patient admitted to: Inpatient With expected LOS: >2 Midnights Practitioner: I am a practitioner with admitting privileges, knowledge of patient current condition, hospital course, and medical plan of care. Services: Services provided to patient in accordance with Admission requirements found in Title 42 Section 412.3 of the Code of Federal Regulations Patient History Date of Service: 06/30/24 Reason for admission: Left lower extremity cellulitis History of Present Illness: 64 yrs old Male with past medical history of diabetes, hypertension, hy perlipidemia, REKHA, chronic constipation who was brought to ER with pain and swelling and discharge from lower extremity wound. Patient denies any fever or chills. No nausea vomiting or diarrhea. No sick contacts. Denies any trauma. Patient states that he was having swelling of left lower extremity for several weeks and stated that over the past several days he has been weeping fluid reported redness of the area as well. States that it is soaking his socks and shoes. He also has a wound on the [facility] was brought to ER for further management. Patient was assessed in the ER and is admitted for further management of cellulitis of left lower extremity Allergies No Known Allergies Allergy (Unverified 08/04/21 10:41) Home medications list reviewed: Yes Home Medications: Lisinopril/Hydrochlorothiazide [Lisinopril-Hctz 20-12.5 mg Tab] 1 each PO DAILY 08/04/21 Aspirin [Aspirin EC 81 MG] 81 mg PO DAILY #30 tablet. 08/05/21 Atorvastatin Calcium [Lipitor] 40 mg PO BEDTIME #30 tab 08/05/21 Polyethyl Gly 3350 [Glycolax*] 17 gm PO DAILY PRN #30 udbot 08/05/21 - Past Medical/Surgical History Diabetic: Yes Past Medical History: Reviewed- Non-Contributory -: hypertension -: DM 2 -: HLD -: Sleep apnea Past Surgical History: Reviewed- Non-Contributory -: hernia repair - Social History Smoking Status: Never smoker Alcohol use: No CD- Drugs: No Caffeine use: No Review of Systems 10-point ROS is otherwise unremarkable Physical Examination - Vital Signs Temperature: 97.8 F Blood Pressure: 168/72 Pulse: 78 Respirations: 18 Pulse Ox (%): 94 - Physical Exam General: Alert, In no apparent distress, Oriented x3, Obese HEENT: Atraumatic, Normocephalic Neck: Supple Respiratory: Clear to auscultation bilaterally, Normal air movement Cardiovascular: Regular rate/rhythm, Normal S1 S2, Edema Capillary refill: <2 Seconds Gastrointestinal: Soft and benign, W/out hepatosplenomegaly Musculoskeletal: No clubbing, Swelling Integumentary: Tenderness/swelling, Erythema, Warmth Neurological: Normal strength at 5/5 x4 extr, Cranial nerves 3-12 intact, Normal reflexes 2+, Normal affect Lymphatics: No axilla or inguinal lymphadenopathy - Studies Laboratory Data (last 24 hrs) 06/30/24 06/30/24 06/30/24 12:11 12:11 12:11 WBC 8.20 Hgb 15.0 Hct 43.4 Plt Count 278 PT 12.8 INR 1.13 APTT 38.0 H Sodium 136 Potassium 3.7 BUN 13 Creatinine 0.74 Glucose 166 H Total Bilirubin 0.5 AST 23 ALT 25 Alkaline Phosphatase 114 Assessment and Plan - Plan Left lower extremity cellulitis Pain control Started on IV antibiotic Doppler negative for DVT Will obtain cultures Keep limb elevated Wound care consult Hypertension Antihypertensives titrated Continue home medications and titrate as needed Hyperlipidemia Continue statin Diabetes Insulin sliding scale Accu-Chek before every meal and at bedtime GI/DVT prophylaxis Advanced directive full code Discharge Plan: Home Plan to discharge in: 48 Hours - Advance Directives Does patient have a Living Will: No Does patient have a Durable POA for Healthcare: No - Code Status/Comfort Care Code Status: Full Code Time Spent Managing Pts Care (In Minutes): 54
[2024-06-30] MEDS ORDERED: ONDANSETRON 4 MG/2 ML VIAL IV PRN (19:55)
[2024-06-30] MEDS ORDERED: VANCOMYCIN 1 GM in NA CHLORIDE 0.9% 250 ML IVPB SCH (20:00)
[2024-06-30] MEDS ORDERED: MORPHINE 2 MG/ML SYR IV PRN (20:00)
[2024-06-30] MEDS ORDERED: HYDROCODONE/APAP 5/325 MG TAB PO PRN (20:00)
[2024-06-30] MEDS ORDERED: D10W 125 ML IV PRN (20:01)
[2024-06-30] MEDS ORDERED: GLUCAGON 1 MG/VIAL IM PRN (20:01)
[2024-06-30] MEDS ORDERED: MORPHINE 4 MG/ML SYR IV PRN (20:24)
[2024-06-30] MEDS ORDERED: POLYETHYL GLY 3350 17 GM/DOSE PO PRN (20:42)
[2024-06-30] MEDS: INSULIN REGULAR (HUMAN) 100 UNIT/ML SQ SCH (21:00)
[2024-06-30 22:00] VITALS: BMI 48.0
[2024-06-30] MEDS: ACETAMINOPHEN 325 MG TABLET PO PRN (22:21)
[2024-06-30] MEDS: ATORVASTATIN 40 MG TAB PO SCH (22:22)
[2024-06-30] MEDS: CEFEPIME 1 GM in NA CHLORIDE 0.9% 100 ML IV SCH (23:38)
[2024-06-30] MEDS: VANCOMYCIN 1 GM in NA CHLORIDE 0.9% 250 ML IVPB ONE (23:39)
[2024-07-01 04:55] LABS: Absolute Basophils 0.1 K/uL (0-0.5); Absolute Eosinophils 0.1 K/uL (0-0.5); Absolute Lymphocytes (CBC) 1.2 K/uL (0.7-4.9); Absolute Monocytes 1.1 K/uL (0.1-1.3); Absolute Neutrophil 10.1 K/uL (1.8-8.0); Basophils % 0.6 % (0-1.3); Eosinophils % 1.1 % (0-4.4); Hematocrit 43.5 % (39.6-49.0); Lymphocytes % 9.6 % (15.3-44.8); MCH 30.3 pg (27.0-35.0); MCHC 34.4 g/dL (32.0-36.0); Monocytes % 8.6 % (3.3-12.3); Neutrophils % 80.1 % (41.7-73.7); Platelets 262 thou/uL (152-406); RBC Red Blood Cell Count 4.95 M/uL (4.33-5.43); Red Cell Distribution Width 13.5 % (12.1-15.2)
[2024-07-01 05:15] LABS: Albumin 3.5 g/dL (3.4-5.0); Albumin/Globulin Ratio 0.9 (1.1-1.8); Anion Gap 9.6 mEq/L (5.0-15.0); Bilirubin Total 0.7 mg/dL (0.2-1.0); Potassium 3.6 mEq/L (3.5-5.1); Protein, Total 7.5 g/dL (6.4-8.2)
[2024-07-01] MEDS: hydroCHLOROthiazide 12.5 MG CAP PO SCH (08:57)
[2024-07-01] MEDS: lisinopriL 20 MG TAB PO SCH (08:57)
[2024-07-01] MEDS: ASPIRIN EC 81 MG TAB PO SCH (08:57)
[2024-07-01] MEDS: ENOXAPARIN 40 MG/0.4 ML SQ SCH (08:58)
[2024-07-01] MEDS ORDERED: HOME MED 1 EA UNK (Lisinopril/Hydrochlorothiazide [Lisinopril-Hctz 20-12.5 Mg Tab] Tablet) PO SCH (09:00)
[2024-07-01] MEDS: CEFEPIME 2 GM in NA CHLORIDE 0.9% 100 ML IV SCH (09:03)
[2024-07-01] MEDS: VANCOMYCIN 2 GM in NA CHLORIDE 0.9% 500 ML IVPB SCH (09:52)
[2024-07-01] MEDS ORDERED: VANCOMYCIN 2 GM in NA CHLORIDE 0.9% 500 ML IVPB SCH (11:30)
--- NOTE | 2024-07-01 13:19 | P.PN ---
Date of Service: 07/01/24 Subjective: Some clinical improvement in cellulitis overnight No other acute events ROS: 10 point ROS as noted above, otherwise negative Physical exam GEN: Alert, oriented, NAD HEENT: Normal conjunctiva, sclera anicteric CV: Regular rate and rhythm, no edema Pulm: Nonlabored respirations on room air ABD: Soft, nontender, nondistended MSK: No joint tenderness Integumentary: Erythema, swelling to left lower extremity from distal calf to foot circumferential Neuro: Normal speech, normal affect Vitals reviewed Assessment: Left lower extremity cellulitis Hypertension Hyperlipidemia Diabetes mellitus type 2 Plan: Left lower extremity cellulitis Continue antibiotics vancomycin/cefepime Blood cultures with no growth in 24 hours Ultrasound negative for DVT Send out clinical improvement so far, white blood cell count increased to 12 today Monitor here trend, CBC Possible discharge in 1 to 2 days Hypertension Hyperlipidemia Continue home medications Diabetes mellitus type 2 ACHS Accu-Chek, sliding scale insulin DVT PPX: Lovenox 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
[2024-07-02 04:33] LABS: Hematocrit 44.6 % (39.6-49.0); MCH 29.8 pg (27.0-35.0); MCHC 33.7 g/dL (32.0-36.0); MCV 88.3 fL (80-100); MPV 7.6 fL (7.6-11.3); Platelets 267 thou/uL (152-406); RBC Red Blood Cell Count 5.04 M/uL (4.33-5.43); Red Cell Distribution Width 13.4 % (12.1-15.2)
[2024-07-02] MEDS ORDERED: MORPHINE 2 MG/ML SYR IV PRN (07:23)
[2024-07-02] MEDS: AMOX/K CLAV 875 MG TAB PO SCH (08:07)
--- NOTE | 2024-07-02 09:41 | P.PN ---
Date of Service: 07/02/24 Subjective: Some clinical improvement in cellulitis overnight No other acute events Improving ROS: 10 point ROS as noted above, otherwise negative Physical exam GEN: Alert, oriented, NAD HEENT: Normal conjunctiva, sclera anicteric CV: Regular rate and rhythm, no edema Pulm: Nonlabored respirations on room air ABD: Soft, nontender, nondistended MSK: No joint tenderness Integumentary: Erythema, swelling to left lower extremity from distal calf to foot circumferential, wound to posterior left calf Neuro: Normal speech, normal affect Vitals reviewed Assessment: Left lower extremity cellulitis/wound Hypertension Hyperlipidemia Diabetes mellitus type 2 Plan: Left lower extremity cellulitis/wound Wound culture with MSSA, switched to PO augmentin Blood cultures with no growth in 24 hours Ultrasound negative for DVT Send out clinical improvement so far WBC improving as well General surgery consult to evaluate wound to posterior left calf area Monitor here trend, CBC Possible discharge in 1 to 2 days Hypertension Hyperlipidemia Continue home medications Diabetes mellitus type 2 ACHS Accu-Chek, sliding scale insulin DVT PPX: Lovenox 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
--- NOTE | 2024-07-02 10:42 | CON ---
Date of Consultation: 07/02/2024 Reason: Left lower leg cellulitis and wound. History Of Present Illness: The patient is a 64-year-old gentleman with multiple medical problems, w luke presented to the emergency room with pain, swelling, redness, and drainage from his left lower ext remity. The patient states that his work told him that he cannot come back to work until he gets thi s issue evaluated as he was draining fluid at work. He says that the swelling started several weeks and over the past few days, there has been a weeping fluid and increased redness of the left leg and fluid is soaking his socks and shoes. He was being followed in the [facility]. He denies any sore th roat, runny nose, cough, headaches, or dizziness. No chest pain. No fever or chills. Review of Systems: Otherwise unremarkable. Past Medical History: Significant for diabetes, hypertension, hyperlipidemia, chronic constipation, and sleep apnea. Past Surgical History: Hernia surgery. Allergies: NONE. Social History: The patient does not smoke or drink alcohol. Family History: Noncontributory. Physical Examination: VITAL SIGNS: Stable. He is currently afebrile. GENERAL: He is awake, alert, oriented x3. HEAD AND NECK: No masses. CHEST: Clear. HEART: S1-S2. ABDOMEN: Soft. EXTREMITIES: Neurovascularly intact. He has diminished dorsalis pedis and posterior tibial pulses, but lymphedema in both lower extremities. On the left leg, there is dry skin with redness, warmth, a nd edema. On the posterior part of the leg, there is a relatively large wound with necrotic eschar/s cab present. It is tender. It is painful. Laboratory Data: His white count was 12.6 yesterday and it is 9.7 today. His INR is 1.13. Chemistr y reviewed, essentially unremarkable except for his glucose 198, which is down to 107. He had a veno us Doppler done, which showed no evidence of DVT. Assessment: A 64-year-old gentleman with multiple medical problems with left leg cellulitis and infe cted wound. Recommendations: Continue IV antibiotics as ordered and we will take the patient to the OR for debri boo of that wound and we will institute local wound care. We can follow up the patient in the [facility] upon discharge. Plan of care was discussed in detail with the patient as well as t he hospitalist team. The patient understands risks, benefits, alternatives, and agrees to procedure. DOLORES/MACHO Voice ID: [id number] Report ID: [id number]
[2024-07-03 05:43] LABS: Hematocrit 45.7 % (39.6-49.0); Hemoglobin 15.3 g/dL (13.6-17.9); MCH 29.5 pg (27.0-35.0); MCHC 33.5 g/dL (32.0-36.0); MCV 88.3 fL (80-100); MPV 7.5 fL (7.6-11.3); Platelets 275 thou/uL (152-406); RBC Red Blood Cell Count 5.18 M/uL (4.33-5.43); Red Cell Distribution Width 13.8 % (12.1-15.2)
[2024-07-03 06:05] LABS: Anion Gap 7.1 mEq/L (5.0-15.0); Magnesium 2.2 mg/dL (1.6-2.4); Phosphorus 3.7 mg/dL (2.5-4.9); Potassium 4.1 mEq/L (3.5-5.1)
--- NOTE | 2024-07-03 10:41 | P.PN ---
Date of Service: 07/03/24 Subjective: Some clinical improvement in cellulitis overnight No other acute events Improving debridement today ROS: 10 point ROS as noted above, otherwise negative Physical exam GEN: Alert, oriented, NAD HEENT: Normal conjunctiva, sclera anicteric CV: Regular rate and rhythm, no edema Pulm: Nonlabored respirations on room air ABD: Soft, nontender, nondistended MSK: No joint tenderness Integumentary: Erythema, swelling to left lower extremity from distal calf to foot circumferential, wound to posterior left calf Neuro: Normal speech, normal affect Vitals reviewed Assessment: Left lower extremity cellulitis/wound Hypertension Hyperlipidemia Diabetes mellitus type 2 Plan: Left lower extremity cellulitis/wound Wound culture with MSSA, switched to PO augmentin Blood cultures with no growth in 24 hours Ultrasound negative for DVT General surgery consulted, debridement for LLE posterior calf wound today Possible DC tomorrow Monitor here trend, CBC Possible discharge in 1 to 2 days Hypertension Hyperlipidemia Continue home medications Diabetes mellitus type 2 ACHS Accu-Chek, sliding scale insulin DVT PPX: Lovenox 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
[2024-07-03] MEDS: NA CHLORIDE 0.9% 1,000 ML ONE (11:19)
[2024-07-03] MEDS: SILVER SULFADIAZINE 1% 25 GM TOP ONE (11:24)
[2024-07-03] MEDS ORDERED: LIDOCAINE 2% MPF 5 ML VIAL ONE (11:38)
[2024-07-03] MEDS ORDERED: propofoL 200 MG/20 ML VIAL IV ONE (11:38)
[2024-07-03] MEDS ORDERED: ONDANSETRON 4 MG/2 ML VIAL ONE (11:38)
[2024-07-03] MEDS ORDERED: FENTANYL CITR 100 MCG/2 ML ONE (11:38)
[2024-07-03] MEDS: MIDAZOLAM HCL 2 MG/2 ML INJ ONE (11:47)
[2024-07-03] MEDS ORDERED: NS 0.9% VIAL 10 ML ONE (12:11)
[2024-07-03] MEDS ORDERED: Phenylephrine HCl 10 MG/ML 1 ML VIAL ONE (12:11)
[2024-07-03] MEDS ORDERED: GLYCOPYRROLATE 0.2 MG/ML SYR ONE (12:12)
[2024-07-03] MEDS ORDERED: dexAMETHasone 4 MG/ML VIAL ONE (12:13)
[2024-07-03] MEDS: CEFAZOLIN SODIUM 2 GM/VIAL ONE (12:13)
[2024-07-03] MEDS ORDERED: METOCLOPRAMIDE 10 MG/2mL INJ ONE (12:14)
--- NOTE | 2024-07-03 12:29 | P.OP ---
Date of Service: 07/03/24 Preop diagnosis: Infected wound left leg with cellulitis Postop diagnosis: Same Procedure performed: Debridement of left leg wound 4 x 6 cm to subcutaneous tissue Surgeon: Atilio Valverde MD Financial Quantitative Analyst: Tyesha RAMIREZ Estimated blood loss: Minimal Specimen: Debridement tissue for culture and pathology Findings: As above Anesthesia: General Complications: None Drains: None Fluids and blood products: None nonapplicable Disposition: Recovery room Operative note: Patient brought to the OR placed supine position. General a nesthesia began. Patient prepped and draped in usual sterile fashion. Patient's left leg was held during the procedure because patient was too large to place in the lateral position on the OR table. Marcaine 0.5% infiltrated locally. Curette used to debride all of the necrotic tissue on the left posterior leg infected wound which was approximately 4 x 6 cm in diameter. Debridement tissue were sent for cultures as well as pathology. Wound irrigated bleeding controlled with pressure and cautery. Santyl dressing applied. Patient awakened and taken to recovery room in good general condition. CC:
[2024-07-03 23:25] VITALS: O2SAT 96
[2024-07-04 08:10] LABS: Hematocrit 44.1 % (39.6-49.0); Hemoglobin 15.1 g/dL (13.6-17.9); MCH 29.8 pg (27.0-35.0); MCHC 34.3 g/dL (32.0-36.0); MCV 87.1 fL (80-100); MPV 7.8 fL (7.6-11.3); Platelets 305 thou/uL (152-406); RBC Red Blood Cell Count 5.07 M/uL (4.33-5.43); Red Cell Distribution Width 13.3 % (12.1-15.2)
[2024-07-04 08:25] LABS: Anion Gap 9.8 mEq/L (5.0-15.0); Potassium 3.8 mEq/L (3.5-5.1)
--- NOTE | 2024-07-04 11:23 | PN ---
Date of Progress Note: 07/04/2024 Subjective: The patient is awake, alert. No complaint. Objective: Vital Signs: Stable, afebrile. Skin: Dressing is clean, dry, intact. Laboratory Data: His white count is 12.8. His cultures grew out Staph aureus, sensitive to Augmenti n. Assessment: Status post debridement of infected wound, left leg with cellulitis. Recommendation: As the cellulitis is improving and we have OR cultures pending, and original culture s from a couple of days back are growing Staph aureus, the patient can be discharged home on oral ant ibiotics. Augmentin should suffice. Wound care as ordered. [facility]. /MODL Voice ID: [id number] Report ID: [id number]
[2024-07-04 12:33] VITALS: TEMP 97.7
[2024-07-04] MEDS: COLLAGENASE 30 GM OINTMENT TOP SCH (12:54)
[2024-07-04 16:40] VITALS: BP 167/80
--- NOTE | 2024-07-04 16:51 | P.DS ---
Admission Date: 06/30/24 Discharge Date: 07/04/24 Disposition: DC HOME/HOME HEALTH CARE Discharge Condition: GOOD Reason for Admission: Left lower extremity cellulitis Brief History of Present Illness: Diagnosis Left lower extremity cellulitis/wound Hypertension Hyperlipidemia Diabetes mellitus type 2 HPI 06/30/2024 64 yrs old Male with past medical history of diabetes, hypertension, hyperlipidemia, REKHA, chronic constipation who was brought to ER with pain and swelling and discharge from lower extremity wound. Patient denies any fever or chills. No nausea vomiting or diarrhea. No sick contacts. Denies any trauma. Patient states that he was having swelling of left lower extremity for several weeks and stated that over the past several days he has been weeping fluid reported redness of the area as well. States that it is soaking his socks and shoes. He also has a wound on the posterior side of the [facility] Patient was brought to ER for further management. Patient was assessed in the ER and is admitted for further management of cellulitis of left lower extremity Hospital Course: Patient was admitted and treated for the following diagnosis Left lower extremity cellulitis/wound Wound culture with MSSA, tolerated PO augmentin Blood cultures with no growth in [address] Valverde will follow surgical wound culture outpatient Ultrasound reported negative for DVT General surgery, Dr. Valverde, debridement for LLE posterior calf wound 07/04/24 H/H stable Hypertension Hyperlipidemia Continue home medications Diabetes mellitus type 2 ACHS Accu-Chek, sliding scale insulin On 07/04/2024, Bill was seen on morning rounds and deemed hemodynamically stable. Dr. Valverde has evaluated and cleared him for discharge with follow-up visit in 1 week to the wound care clinic. He should remain home from work until cleared by Dr. Valverde. Wound cultures will be followed by Dr. Valverde and antibiotics will be changed accordingly. Amoxicillin, hydrochlorothiazide, lisinopril and Santillo have been prescribed. Physical exam GEN: Alert and oriented x3, NAD CV: RRR, no edema Pulm: Nonlabored respirations on room air ABD: Soft and nontender on palpation, nondistended MSK: No joint tenderness Integumentary: Erythema, swelling to left lower extremity from distal calf to foot circumferential, wound to posterior left calf Neuro: Normal speech, normal affect Vital Signs/Physical Exam: Temp Pulse Resp BP Pulse Ox 97.7 F 79 20 167/80 H 99 07/04/24 16:00 07/04/24 16:00 07/04/24 16:00 07/04/24 16:00 07/04/24 16:00 Laboratory Data at Discharge: WBC 12.80 thou/uL (4.3-10.9) H 07/04/24 07:49 Hgb 15.1 g/dL (13.6-17.9) 07/04/24 07:49 Hct 44.1 % (39.6-49.0) 07/04/24 07:49 Plt Count 305 thou/uL (152-406) 07/04/24 07:49 PT 12.8 SECONDS (10-13.0) 06/30/24 12:11 INR 1.13 06/30/24 12:11 APTT 38.0 SECONDS (27.2-37.4) H 06/30/24 12:11 Sodium 139 mEq/L (136-145) 07/04/24 07:49 Potassium 3.8 mEq/L (3.5-5.1) 07/04/24 07:49 BUN 15 mg/dL (7-18) 07/04/24 07:49 Creatinine 0.58 mg/dL (0.70-1.30) L 07/04/24 07:49 Glucose 145 mg/dL (74-106) H 07/04/24 07:49 Phosphorus 3.7 mg/dL (2.5-4.9) 07/03/24 05:16 Magnesium 2.2 mg/dL (1.6-2.4) 07/03/24 05:16 Total Bilirubin 0.7 mg/dL (0.2-1.0) 07/01/24 04:19 AST 20 U/L (15-37) 07/01/24 04:19 ALT 24 U/L (16-61) 07/01/24 04:19 Alkaline Phosphatase 106 U/L (45-117) 07/01/24 04:19 Home Medications: Aspirin [Aspirin EC 81 MG] 81 mg PO DAILY #30 tablet. 08/05/21 Atorvastatin Calcium [Lipitor] 40 mg PO BEDTIME #30 tab 08/05/21 Amox/Clavulanate [Augmentin 875-125 Tab*] 875 mg PO BIDWM 10 Days #20 tab 07/04/24 Collagenase [Santyl Ointment*] 1 appl TOP DAILY 10 Days #5 bottle 07/04/24 hydroCHLOROthiazide [Hydrochlorothiazide*] 12.5 mg PO DAILY 30 Days #30 cap 07/04/24 lisinopriL [Prinivil*] 20 mg PO DAILY 30 Days #30 tab 07/04/24 New Medications: Amox/Clavulanate [Augmentin 875-125 Tab*] 875 mg PO BIDWM 10 Days #20 tab hydroCHLOROthiazide [Hydrochlorothiazide*] 12.5 mg PO DAILY 30 Days #30 cap lisinopriL [Prinivil*] 20 mg PO DAILY 30 Days #30 tab Collagenase [Santyl Ointment*] 1 appl TOP DAILY 10 Days #5 bottle Physician Discharge Instructions: 1. Please call and schedule a follow-up appointment with your PCP in 3-5 days - Please follow-up with your PCP for medication refills/adjustments -Change blood pressure medication to lisinopril and hydrochlorothiazide 2. Please call and schedule a follow-up appointment with Dr. Valverde and wound care clinic in 1 week -Elevate leg, remain off work until cleared by Dr. Valverde at the one week appointment at the wound care clinic 3. Continue diabetic diet 4. activity restrictions , Dr. Valverde will clear you to return to work after the wound care clinic visit in 1 week 5. Return to the ED if symptoms worsen New medications Amoxicillin 875 twice daily x 10 days Lisinopril 20 mg daily Hydrochlorothiazide 12.5 mg daily Wound care instructions Santyl to wound daily, gauze Kerlix and Stan starting at the foot to the knee Diet: ADA Followup: [facility] [Primary Care Provider] - 1-2 Weeks
[2024-07-05] MEDS ORDERED: COLLAGENASE 30 GM OINTMENT TOP SCH (09:00)
--- NOTE | 2024-07-05 12:52 | EKG ---
Test Date: 2024-06-30 Test Time: 12:39:40 Compliance Clerk: HATTIE MEASUREMENT RESULTS: Intervals: Rate: 87 OK: 182 QRSD: 84 QT: 354 QTc: 425 [place]: P: 64 OK: 182 QRS: 17 T: 53 INTERPRETIVE STATEMENTS: Sinus rhythm with occasional premature ventricular complexes Otherwise normal ECG Compared to ECG 08/05/2021 05:54:12 Ventricular premature complex(es) now present Electronically Signed On 07-05-24 12:33:29 CDT by Bj Vasquez
== END 2024-07-04 18:29 | disposition home health service (06) | DRG 571 ==
LOC: ER 10:53 → ERHOLD 19:55 → 2ND 20:38
PROVIDERS: ADMIT Family Medicine; ATTEND Internal Medicine
PROC: 0JBP0ZZ Excision of Left Lower Leg Subcutaneous Tissue and Fascia, Open Approach (ICD-10-PCS; principal; 2024-07-03 13:00)
DX: L03.116 Cellulitis of left lower limb (principal); Z68.42 Body mass index [BMI] 45.0-49.9, adult; E66.9 Obesity, unspecified; K59.09 Other constipation; E11.9 Type 2 diabetes mellitus without complications; E78.00 Pure hypercholesterolemia, unspecified; I10 Essential (primary) hypertension; B95.61 Methicillin susceptible Staphylococcus aureus infection as the cause of diseases classified elsewhere; Z79.82 Long term (current) use of aspirin; Z79.899 Other long term (current) drug therapy
CPT/HCPCS: 36415; 80048; 80053; 80202; 82947; 83605; 83735; 84100; 85025; 85027; 85610; 85730; 87040; 87070; 87075; 87077; 87176; 87186; 87205; 88304; 93005; 93971; 96374; 99285; A4216; J0692; J1100; J1650; J1815; J2003; J2250; J2371; J2405; J2704; J2765; J3010; J3370; J3590; J7030; J7040; J7050